=== PATIENT | male | born 1955 | race Caucasian/White ===

== ENCOUNTER 2022-01-01 23:40 | Inpatient (IN) | payer BC, SELFPAY ==
[2022-01-01 23:55] VITALS: BP 176/85; PULSE 82; RESP 16; TEMP 36.7; O2SAT 95
--- NOTE | 2022-01-01 23:57 | ECG_ITS ---
[facility] Test Date: 2022-01-02 Pat Name: Derik Vitale Department: Room: Gender: Male Senior Manager: : 1955 Requested By: Elie Thacker Order Number: [id number] Cathryn MD: Jim Bhandari M.D. Measurements Intervals [place] Rate: 73 P: 51 [place]: 164 QRS: -69 QRSD: 93 T: 23 QT: 354 QTc: 391 Interpretive Statements SINUS RHYTHM LEFT AXIS DEVIATION [QRS AXIS < -30] ANTERIOR MYOCARDIAL INFARCTION , OF INDETERMINATE AGE [30 ms Q WAVE IN V3/V4, OR R < 0.2 mV IN V4] No previous ECG available for comparison Electronically Signed On 01-02-2022 14:52:57 CDT by Jim Bhandari M.D. [email or web address].BullGuard/store/NU/[id number] f
[2022-01-02] VITALS (246 sets, daily range): BP systolic 103–156; BP diastolic 59–90; PULSE 0–106; RESP 7–30; TEMP 36.9–37.1; O2SAT 88–97; BMI 30.6
--- NOTE | 2022-01-02 00:09 | XRR_ITS ---
PROCEDURE INFORMATION: Exam: XR Chest Exam date and time: 01/02/2022 12:21 AM Age: 66 years old Clinical indication: Pain; Chest pressure; Additional info: Cp TECHNIQUE: Imaging protocol: Radiologic exam of the chest. Views: 1 view. COMPARISON: No relevant prior studies available. FINDINGS: Lungs: Unremarkable. No consolidation. Pleural spaces: Unremarkable. No pleural effusion. No pneumothorax. Heart/Mediastinum: Unremarkable. No cardiomegaly. Bones/joints: Unremarkable. XR/XR chest 1V portable [id number] IMPRESSION: No acute findings.
--- NOTE | 2022-01-02 00:09 | ECG_ITS ---
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 Measurements Intervals [place] Rate: 82 P: 46 [place]: 164 QRS: -69 QRSD: 92 T: 13 QT: 350 QTc: 411 Interpretive Statements SINUS RHYTHM LEFT ANTERIOR FASCICULAR BLOCK [QRS AXIS <= -45, QR IN I, RS IN II] POSSIBLE INFERIOR MYOCARDIAL INFARCTION , PROBABLY OLD [30 ms Q WAVE IN II/aVF] ANTEROSEPTAL MYOCARDIAL INFARCTION , OF INDETERMINATE AGE [40+ ms Q WAVE IN V1-V4] No previous ECG available for comparison Electronically Signed On 01-02-2022 14:53:13 CDT by Jim Bhandari M.D. [id number]
[2022-01-02] MEDS: aspirin 81 mg Chew Tablet 324 MG PO (00:14)
[2022-01-02 00:21] LABS: Basophils # 0.1 10^3/uL (0.0-0.1); Basophils % 0.6 %; Eosinophils # 0.2 10^3/uL (0.0-0.8); Eosinophils % 2.5 %; Hematocrit 45.5 % (42.0-52.0); Hemoglobin 15.8 g/dL (11.7-16.6); Lymphocytes # 3.4 10^3/uL (0.8-4.8); Lymphocytes % 38.4 %; Mean Corpuscular HGB Conc 34.7 g/dL (30.0-36.0); Mean Corpuscular Hemoglobin 32.3 pg (28.0-34.0); Mean Platelet Volume 10.3 fL (7.4-10.4); Monocytes # 0.8 10^3/uL (0.2-0.9); Neutrophils # 4.35 10^3/uL (1.8-7.7); Neutrophils % 49.3 %; Nucleated Red Blood Cells % 0 %; Platelet Count 200 10^3/cmm (130-400); Red Blood Count 4.89 10^6/uL (4.1-5.3); Red Cell Distribution Width 11.5 % (12.1-15.1); White Blood Count 8.8 10^3/uL (4.0-10.0)
[2022-01-02 00:28] LABS: INR 0.87 (0.8-1.2)
[2022-01-02 00:29] LABS: Partial Thromboplastin Time 26.1 SECONDS (23.9-36.7)
[2022-01-02] MEDS: heparin 5,000 unit/mL INJ 1 mL 4000 UNIT IVP (00:29)
[2022-01-02] MEDS: morphine 4 mg/mL SDV 1 mL IVP ×2 (00:32→01:47)
[2022-01-02] MEDS: nitroglycerin 0.4 mg sublingual Tablet SUBLINGUAL (00:32)
[2022-01-02] MEDS: ondansetron 2 mg/ML SDV 2 mL 4 MG IVP (00:33)
[2022-01-02 00:36] LABS: Troponin(5th) Baseline 23 ng/L (0-15)
--- NOTE | 2022-01-02 00:44 | W.ED.CHESTPA ---
HPI - Chest Pain General: Chief Complaint: Chest Pain Stated Complaint: Chest Pains Time Seen by Provider: 01/02/22 00:03 Source: patient History of Present Illness: 66-year-old gentleman with a history of hypertension and diabetes. He presents with chest discomfort. It is centralized, and radiates a bit to his back. He has no prior history of coronary disease. He has had pain on and off the last couple of days but did not think much of it because it went away on its own. Pain started sometime before 11 tonight, and did not go away. He is nauseated and short of breath with the pain. He has not thrown up. MD complaint: chest pain Pertinent past history: other Onset (ago): day(s) Timing of current episode: episodic Prior episodes: Yes Onset: during rest Pain location: substernal Pain radiation: back Quality: aching and dull Relieving factors: nothing Exacerbating factors: nothing Associated symptoms: Reports diaphoresis, dyspnea and nausea; Deny abdominal pain, fever(s), leg edema, palpitations or vomiting Treatment prior to arrival: aspirin (Unknown if baby or full) Risk Factors: Coronary artery disease risk factors: diabetes, hyperlipidemia and hypertension Review of Systems Const: Reports: diaphoresis; Denies: fever(s) Eyes: Denies: change in vision Card: Reports: chest pain; Denies: palpitations Resp: Reports: dyspnea GI: Reports: nausea; Denies: abdominal pain or vomiting Skin/Breast: Denies: rash Neuro: Denies: headache(s), weakness in extremities, dizziness or confusion PFS ED PFSH: Medical History (Updated 01/02/22 @ 01:49 by Elie Nicole DO) Chest pressure Diabetes Dyslipidemia Essential hypertension History of COVID-19 Statin intolerance Surgical History (Updated 01/02/22 @ 01:08 by Jim Bhandari MD) History of cholecystectomy Physical Exam Const: GENERAL APPEARANCE: cooperative and ill appearing (Mildly); not frail appearing HENMT: COMMON NORMALS: normocephalic, atraumatic and Normal external nose present HEAD & SCALP: normocephalic and atraumatic FACE & SINUS: normal facial exam and face symmetric NOSE: Normal external nose present Eye: COMMON NORMALS: Equal, round and reactive pupils present and EOMs intact bilaterally PUPIL: Yes Equal, round and reactive pupils present Neck/C-Spine: GENERAL: Yes trachea midline Chest: CHEST: Yes Symmetrical chest wall rise Resp: COMMON NORMALS: normal respiratory effort, No retractions, No use of accessory muscles and clear to auscultation bilaterally AUSCULTATION: clear to auscultation bilaterally Cardio: COMMON NORMALS: regular rate and regular rhythm RATE: regular rate RHYTHM: regular rhythm GI: COMMON NORMALS: Normal to inspection, nondistended, normoactive bowel sounds present Extremity: COMMON NORMALS: no pedal edema Neuro: JERALD COMA SCALE: document GCS findings Jerald coma scale eye opening: Spontaneous Jerald coma scale verbal response: Orientated [place] coma scale motor response: Obey commands Jerald coma scale total score: 15 SENSORY EXAM: Yes extremities (intact) Psych: COMMON NORMALS: speech normal SPEECH: Yes normal speech Skin: COMMON NORMALS: no rashes or lesions noted GENERAL SKIN EXAM: no rashes or lesions noted Course Vital Signs: Vital signs: Vital Signs Temperature 98.0 F 01/01/22 23:55 Pulse Rate 87 01/02/22 01:20 Respiratory Rate 18 01/02/22 01:20 Blood Pressure 145/83 01/02/22 01:20 Pulse Oximetry 95 01/02/22 01:20 Oxygen Delivery Me thod 01/01/22 23:55 MDM - Chest Pain Medical Decision Making Initial EKG shows a sinus rhythm with normal axis. There is ST elevation that is minimal in V1 and V2. There is some minimal depression in lead II. EKG is repeated a few minutes later, and shows similar findings. This was shown to cardiology immediately. They agree that EKG is abnormal, but does not meet STEMI criteria. Nevertheless, he has come in to evaluate the patient. Patient is received heparin, Plavix 600 mg, nitroglycerin with drip and a full dose aspirin. He is also received morphine and Zofran. Repeating an EKG directly. Chest x-ray is nonacute CBC is normal. First troponin is 24. Blood sugar is 281. BMP is not remarkable otherwise. Patient is on a nitroglycerin drip. He is currently pain-free. Cardiology is evaluating the patient. He will go to the ICU. He is scheduled to go to the [facility] at 7 AM Lab Data : 01/02/22 00:11 01/02/22 00:11 Radiology Impressions Chest X-Ray 01/02/22 00:09 IMPRESSION: No acute findings. Laboratory Results WBC 8.8 10^3/uL (4.0-10.0) 01/02/22 00:11 RBC 4.89 10^6/uL (4.1-5.3) 01/02/22 00:11 Hgb 15.8 g/dL (11.7-16.6) 01/02/22 00:11 Hct 45.5 % (42.0-52.0) 01/02/22 00:11 MCV 93.0 fl (80-94) 01/02/22 00:11 MCH 32.3 pg (28.0-34.0) 01/02/22 00:11 MCHC 34.7 g/dL (30.0-36.0) 01/02/22 00:11 RDW 11.5 % (12.1-15.1) L 01/02/22 00:11 Plt Count 200 10^3/cmm (130-400) 01/02/22 00:11 MPV 10.3 fL (7.4-10.4) 01/02/22 00:11 Neut % (Auto) 49.3 % 01/02/22 00:11 Lymph % (Auto) 38.4 % 01/02/22 00:11 [place] % (Auto) 9.0 % 01/02/22 00:11 Eos % (Auto) 2.5 % 01/02/22 00:11 Baso % (Auto) 0.6 % 01/02/22 00:11 Neut # (Auto) 4.35 10^3/uL (1.8-7.7) 01/02/22 00:11 Lymph # (Auto) 3.4 10^3/uL (0.8-4.8) 01/02/22 00:11 [place] # (Auto) 0.8 10^3/uL (0.2-0.9) 01/02/22 00:11 Eos # (Auto) 0.2 10^3/uL (0.0-0.8) 01/02/22 00:11 Baso # (Auto) 0.1 10^3/uL (0.0-0.1) 01/02/22 00:11 Nucleated RBC % (auto) 0 % 01/02/22 00:11 Nucleated RBCs # 0.0 /100WBC 10/31/22 00:11 PT 12.10 SECONDS (12.1-14.9) 01/02/22 00:11 INR 0.87 (0.8-1.2) 01/02/22 00:11 APTT 26.1 SECONDS (23.9-36.7) 01/02/22 00:11 Sodium 133 mmol/L (136-145) L 01/02/22 00:11 Potassium 4.2 mmol/L (3.5-5.1) 01/02/22 00:11 Chloride 94 mmol/L (98-107) L 01/02/22 00:11 Carbon Dioxide 27 mmol/L (22-29) 01/02/22 00:11 Anion Gap 16.2 (5-19) 01/02/22 00:11 BUN 19 mg/dL (8-23) 01/02/22 00:11 Creatinine 0.8 mg/dL (0.7-1.2) 01/02/22 00:11 GFR Calculation 97.3 mL/min (90-130) 01/02/22 00:11 Glucose 281 mg/dL (65-115) H 01/02/22 00:11 Calculated Osmolality 288 mOsm/kg (285-295) 01/02/22 00:11 Calcium 10.2 mg/dL (8.5-10.5) 01/02/22 00:11 Total Bilirubin 0.9 mg/dL (0.15-1.2) 01/02/22 00:11 AST 25 U/L (0-40) 01/02/22 00:11 ALT 46 U/L (0-41) H 01/02/22 00:11 Alkaline Phosphatase 82 U/L (40-130) 01/02/22 00:11 Troponin T Baseline 23 ng/L (0-15) H 01/02/22 00:11 NT-Pro-B Natriuret Pep 36 pg/mL (0-125) 01/02/22 00:11 Total Protein 7.2 g/dL (6.6-8.7) 01/02/22 00:11 Albumin 4.1 g/dL (3.5-5.2) 01/02/22 00:11 Globulin 3.1 g/dL (1.3-4.6) 01/02/22 00:11 Discharge Plan Discharge Patient Disposition: Admitted As Inpatient Clinical Impression: Chest pressure Condition: Fair Referrals: Flores Lino NP [Primary Care Provider] - Coding Level of Care Code ED Swatch Clerk for Chg Fwd Exam Comprehensive
[2022-01-02] MEDS: nitroglycerin drip 50 MG/250 ML PREMIX IV (00:45)
[2022-01-02] MEDS: clopidogrel 300 mg Tablet 600 MG PO (00:45)
[2022-01-02 00:46] LABS: Alanine Aminotransferase 46 U/L (0-41); Albumin Level 4.1 g/dL (3.5-5.2); Alkaline Phosphatase 82 U/L (40-130); Aspartate Amino Transferase 25 U/L (0-40); Blood Urea Nitrogen 19 mg/dL (8-23); Calcium 10.2 mg/dL (8.5-10.5); Carbon Dioxide 27 mmol/L (22-29); Chloride 94 mmol/L (98-107); Globulin 3.1 g/dL (1.3-4.6); Glomerular Filtration Rate 97.3 mL/min (90-130); Glucose 281 mg/dL (65-115); NT Pro B Type Natriuretic Pept 36 pg/mL (0-125); Osmolality Calculated 288 mOsm/kg (285-295); Sodium 133 mmol/L (136-145); Total Bilirubin 0.9 mg/dL (0.15-1.2); Total Protein 7.2 g/dL (6.6-8.7)
[2022-01-02 00:51] LABS: Anion Gap 16.2 (5-19)
[2022-01-02 00:52] LABS: Potassium 4.2 mmol/L (3.5-5.1)
--- NOTE | 2022-01-02 01:01 | P.HP_ITS ---
Providers/Chief Complaint Admitting Physician: ro Primary Care Provider: Flores Lino NP Chief Complaint: Chest Pains History of Present Illness Derik Vitale is a 66 year old male with no known history of heart disease but hypertension, diabetes and dyslipidemia who has been having some discomfort in his chest for the last 2 days. Is been off and on. It would only last for few seconds or a couple minutes. He describes it as a pressure without radiation. Today the episodes were lasting a little longer. This evening around 11 when he went to bed the discomfort was more severe and so he came into the emergency room. It was associated with mild shortness of breath but no radiation and no diaphoresis. He does have GERD and takes a lot of Tums and so he is having a hard time deciding between the 2. His first EKG reveals minimal ST segment elevation in leads V1 and V2 but nothing obvious to suggest a STEMI EKG pattern was repeated twice and is the same. Here we gave him 4 baby aspirin, morphine sulfate, sublingual nitroglycerin, heparin, Plavix and Zofran. When he came in the discomfort was an 8 out of 10. After the medications the discomfort has resolved. He is now placed on intravenous nitroglycerin. His blood pressure was slightly high when he came in but it has gone down some with the IV nitro. Patient has had COVID twice. He has not been vaccinated. He is intolerant of statins and had childhood asthma. He has also had a cholecystectomy. He sta rted smoking at age 18 but quit in 1994. His first troponin is 23. His creatinine is normal. Review of Systems Narrative: His review of systems is negative. Medications/Allergies Allergies Allergy/AdvReac Type Severity Reaction Status Date / Time clarithromycin [From Biaxin] Allergy Unknown Verified 01/01/22 23:57 PFSH Acute PFSH: Medical History (Updated 01/02/22 @ 01:08 by Jim Bhandari MD) Chest pressure Diabetes Dyslipidemia Essential hypertension History of COVID-19 Statin intolerance Surgical History (Updated 01/02/22 @ 01:08 by Jim Bhandari MD) History of cholecystectomy Vitals/I&O/Wt Last Vital Signs Temp 98.0 F 01/01/22 23:55 Pulse 85 01/02/22 00:52 Resp 16 01/02/22 00:52 BP 143/90 01/02/22 00:52 Pulse Ox 92 01/02/22 00:52 O2 Del Method 01/01/22 23:55 Weight last 48 hrs Weight 220 lb Physical Exam Narrative: GENERAL: In general he is currently free of discomfort HEENT: Exam within normal limits. NECK: Supple without jugular vein distention. The carotid upstroke is normal without bruits. BACK: Exam normal. LUNGS: Clear. HEART: Regular rate and rhythm. ABDOMEN: Benign without organomegaly or tenderness. EXTREMITIES: No edema. NEUROLOGIC: Exam normal. SKIN: Unremarkable. Data : 01/02/22 00:11 01/02/22 00:11 A&P Assessment and plan (1) Chest pressure: (2) Diabetes: (3) Essential hypertension: (4) Dyslipidemia: (5) Statin intolerance: (6) History of COVID-19: (7) History of cholecystectomy: Plan He will be admitted for unstable angina. Angiography will be scheduled for later this morning. Attestations Medical Necessity Statement*: Patient will be admitted for management of unsta ble angina and probable non-ST segment elevation myocardial infarction. Hospital stay will cross 2 midnights. 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
[2022-01-02] MEDS: sodium chloride 0.9% 1,000 ML 50 ML IV (01:47)
--- NOTE | 2022-01-02 02:09 | ECG_ITS ---
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 Measurements Intervals [place] Rate: 83 P: 47 [place]: 158 QRS: -62 QRSD: 90 T: 8 QT: 347 QTc: 409 Interpretive Statements SINUS RHYTHM LEFT ANTERIOR FASCICULAR BLOCK [QRS AXIS <= -45, QR IN I, RS IN II] ANTEROSEPTAL MYOCARDIAL INFARCTION , OF INDETERMINATE AGE [40+ ms Q WAVE IN V1-V4] Compared to ECG 01/02/2022 00:49:17 No significant changes Electronically Signed On 01-02-2022 14:56:56 CDT by Jim Bhandari M.D. [email or web address]/[id number]
--- NOTE | 2022-01-02 02:31 | PC.NURSE ---
Report given to JENNIFER Nowak
--- NOTE | 2022-01-02 03:00 | PC.NURSE ---
Transfer Note Patient transferred to ER from ICU via stretcher. Handoff received from SHELLEY Sanchez. Patient oriented to environment and equipment. Covering service notified. Orders reviewed and will continue to monitor. Patient transferred on room air and is alert/oriented x4. Nitro and NS infusing per orders at time of transfer please see MAR for details. No wounds or skin issues noted at this time. Patient denies chest pain upon arrival to ICU. All belongings placed at bedside.
--- NOTE | 2022-01-02 05:49 | PC.NURSE ---
Shift Note Frequent safety and comfort rounds continue. Orders and/or nursing care completed as indicated. Patient monitored for response to intervention and treatment(s). Education provided includes treatment plan and goals of care. Patient verbalized understanding of teaching. Patient had an uneventful shift, remains on room air and is alert/oriented x4. No wounds or skin issues noted at this time. Nitro and NS infusing per orders please see MAR for detail. Patient denies pain overnight and voided 680 mls of urine via urinal. Will continue to monitor.
--- NOTE | 2022-01-02 06:06 | ECG_ITS ---
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 Measurements Intervals [place] Rate: 71 P: 57 [place]: 158 QRS: -62 QRSD: 101 T: 30 QT: 369 QTc: 403 Interpretive Statements SINUS RHYTHM LEFT AXIS DEVIATION [QRS AXIS < -30] ANTEROSEPTAL MYOCARDIAL INFARCTION , OF INDETERMINATE AGE [40+ ms Q WAVE IN V1-V4] Compared to ECG 01/02/2022 01:38:23 Left-axis deviation now present Left anterior fascicular block no longer present Myocardial infarct finding still present Electronically Signed On 01-02-2022 14:57:11 CDT by Jim Bhandari M.D. [email or web address] [email or web address] [email or web address] woman[facility] hospitalShenzhen [employer] [facility].Jolancer/store/OM/[id number]
[2022-01-02] MEDS: diphenhydrAMINE 50 mg Capsule PO (06:09)
--- NOTE | 2022-01-02 06:51 | XACV_ITS ---
Exam Room: [facility] Ht: 178 cm Wt: 97 kg BSA: 2.21 m2 Gender: Male : 1955 Exam Priority: Routine Procedure(s): Procedure Description: Diagnostic procedure Procedure Description: PCI procedure Procedure Description: Drug Eluting Coronary Stent Procedure Description: PTCA Procedure Description: Coronary Angiography Diagnostic Cath Status: Urgent Diagnostic Findings * Patient with hypertension and diabetes with typical angina. Entered the emergency room about 6 hours ago with very minimal ST segment elevation in lead V1. First troponin 23. Patient's pain went away with heparin, Plavix and intravenous nitroglycerin. Catheterization performed this morning. * Angiography revealed right coronary artery dominance. The right coronary artery is a large dominant vessel and contains some diffuse luminal irregularities up to about 30 or 40% in the proximal portion. Otherwise the artery is normal. The right coronary artery does provide collateral flow to the distal LAD.. * The left main coronary artery contains a 20% ostial stenosis. The LAD contains a complicated lesion in the midportion which is greater than 95% stenosis at its beginning then subsequently is 50 to 60% stenosed more distally. There are 2 diagonal branches which emanate from this lesion. Both of these are small and contain 99% stenoses. The remainder of the LAD is unremarkable. * Circumflex gives off a ramus branch at the beginning and a first obtuse marginal branch immediately thereafter. There is a left atrial recurrent branch. More distally there to obtuse marginal branches which are relatively small. The entire vessel is relatively free of disease. PCI Status: Urgent PCI LVEF Assessed: No PCI Indication: NSTE - ACS Interventional Findings * The LAD was initially angioplastied with a 3 x 20 mm balloon. There is significant thrombus and some downstream embolization. The lesion was then stented with a 3 x 30 mm drug-eluting stent. There was mild thrombus beyond the lesion. It was treated with intracoronary Aggrastat and intravenous Aggrastat. Ventriculography was not performed. Decision for PCI with Surgical Consult: No PCI for Multi-vessel Disease: No Conclusions 1. Complex proximal to mid LAD lesion with thrombus undergoing angioplasty and stent. Good angiographic result. Echo pending. Recommendations * Medical therapy. Interventional RX Recommendation: PCI w/o planned CABG Diagnostic RX Recommendation: PCI w/o planned CABG Anticoagulation: Heparin Pressures Phase:Rest AO : 89 / 70 ( 81 ) @ 8:16:00 AM 97 / 64 ( 81 ) @ 8:27:00 AM 100 / 72 ( 87 ) @ 8:41:00 AM 104 / 77 ( 91 ) @ 8:44:00 AM 116 / 80 ( 99 ) @ 8:47:00 AM Clinical Evaluation EBL: 5mL-10mL Procedural Details Procedure Consent Obtained. Admit Source: In Patient. Current Diagnosis : NSTEMI. Pre-Procedure Time Out. Identified patient by full name and date of as verbalized by the patient/guarantor. Does the consent match the physician's order: Yes. Accurate & Complete Informed Consent: Yes. Inpatient/Outpatient History & Physical on Chart: Yes. If H&P is completed, is and addenduem needed: N/A; If yes, is the addendum complete: N/A. Visualize and Verify Site with Patient/Guarantor: N/A. Relevant Radiology Images available: N/A. Pre-op teaching completed and patient verbalized understanding. The risks, benefits, and alternatives of sedation and/or procedure were discussed by physician. The patient agrees to continue. Procedure started. [facility] Clinical Fraility Score: 3: Managing Well. 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 Chest Pain Symptom Assessment: Typical Angina Symptoms. Correct patient, site and procedure confirmed by cath team. Current diagnosis: NSTEMI. PERRLA. Strong, equal hand metal tank builder bilaterally. Lungs clear x 5 lobes. IV Site on Arrival: 20 gauge in the left anticubital. IV Fluids: 0.9% NaCl at KVO. 0 mL infused prior to dental laboratory worker. Pre Procedural Pulses: bilateral dorsalis pedis was 2+. Pre Procedural Pulses: right radial was 2+. Oxygen started at 2liters/min via nasal canula. right groin was prepped with chloroprep then draped in the usual sterile fashion. right radial was prepped with chloroprep then draped in the usual sterile fashion. Baseline sample Acquired. HR: 71 BPM. Physician notified. Physician arrived. Physician scrubbed in. Immediate Pre-Procedure Time Out. Correct Patient: Yes; Correct Procedure: Yes; Correct Site: Yes; Correct Patient Position: Yes; Correct Supplies: Yes; Dried Flammable Prep: Yes; Blood Products Available: N/A;. Lidocaine 1% infiltrated to the right radial. Arterial access obtained. A 6 korean TIG catheter in over wire. Multiple views taken of right coronary artery. Catheter redirected to the LCA. Catheter removed over the exchange wire. PCI Indication: NSTE. 6 korean XB 3.5 guide catheter was inserted over the wire. Exchange wire removed. Unable to engage catheter. XB.3 catheter removed over the exchange wire. 6 korean XB 3 guide catheter was inserted over the wire. Exchange wire removed. [place] guidewire was advanced through the guide catheter to lesion in the mid LAD. Balloon inserted to lesion in the mid LAD. Inflation number : 1 A AB TREK 3.00X20 RX BALLOON was prepped and advanced across the Mid LAD , then inflated to 8 ROBB for 0:20 seconds. Inflation number: 2 The AB TREK 3.00X20 RX BALLOON was reinflated across the Mid LAD, to 8 ROBB for 0:32 seconds. Balloon out. Stent inserted to lesion in the mid LAD. Inflation Number : 3 A SUDEEP Lizama LAZARO 3.0X34 VAHE -Lot Number# [id number] Exp 03/16/2024 was prepped and advanced across the Mid LAD. The stent was deployed at 14 ROBB for 0:31 seconds. Results checked. Results checked. Results checked. Stent balloon out over wire. Guide catheter and wire out. A TR Band was successful obtaining hemostatsis at the Right Radial artery insertion site. Post Procedure: Pulses reassessed and unchanged. PERRLA. Strong, equal hand metal tank builder bilaterally. No VTE prophylaxis required. Medication's Wasted: Lidocaine 1% = 2 mL. Medication's Wasted: Nitro = 49.8 mg. Medication's Wasted: Heparin = 1000 u. Medication's Wasted: Other = Fentanyl 25 mcg. Total IV fluids: 64 mL. Post-op diagnosis: Obstructive CAD. Complications: none. Estimated blood loss: 5mL-10mL. Responsiveness - Normal response to verbal stimuli; alert and oriented, PERRLA. Airway - Unaffected, no intervention required; spontaneous ventilation. Circulation: W/N/L, pulses unchanged. Nausea/Vomiting: No. Procedure completed. Patient transferred by wheelchair to ICU. Vital chart was stopped. Access Site Site: Right Radial artery Sheath Size: 6 Fr Hemostasis Method: TR Band Hemostasis Success: Successful Procedure Medications Start: 7:09 AM Stop: 7:09 AM Medication: Versed Amount: 1 mg Route: I.V. Start: 7:09 AM Stop: 7:09 AM Medication: Fentanyl Amount: 50 mcg Route: I.V. Start: 7:12 AM Stop: 7:12 AM Medication: Nitrogylcerin Amount: 200 mcg Route: I.A. Start: 7:16 AM Stop: 7:16 AM Medication: Heparin Amount: 5000 units Route: I.V. Start: 7:29 AM Stop: 7:29 AM Medication: Versed Amount: 1 mg Route: I.V. Start: 7:29 AM Stop: 7:29 AM Medication: Fentanyl Amount: 25 mcg Route: I.V. Start: 7:54 AM Stop: 7:54 AM Medication: Aggrastat 12.5 mg/250 mL Amount: 49 ml Route: I.C. Start: 7:55 AM Stop: 7:55 AM Medication: Aggrastat 12.5 mg/250 mL Amount: 17.6 ml/hr Route: I.V. don Sarmiento, the attending physician, have reviewed and verified all procedure medications. Yes, all medications given per verbal order History/Risk Factors Hypertension: Yes Dyslipidemia: Yes Peripheral Arterial Disease (PAD): No Myocardial Infarction (NH): No Obesity: Yes Renal Disease: No Tobacco Use: Former Prior Interventions PCI: No CABG: No Valve Surgery: No Report Signatures Finalized by Dr. Jim Bhandari MD on 01/02/2022 08:36 AM
[2022-01-02 07:22] LABS: Troponin 5 6HR 663.3 ng/L (0-15); Troponin 5 6HR Delta 640.3 ng/L (0-12)
--- NOTE | 2022-01-02 08:24 | USCV_ITS ---
Derik Vitale Age: 66 Gender: M : 1955 Exam Date: 01/02/2022 09:58 Ordering Phys: Jim Bhandari MD ([email or web address]) Technologist: Epi Horn [place] [facility] [place]: NSTEMI BP: 134 / 71 HR: 72 Rhythm: Sinus Technical Quality: Adequate MEASUREMENTS (Male / Female) Normal Values 2D ECHO LV Diastolic Diameter PLAX 4.9 cm 4.2 - 5.9 / 3.9 - 5.3 cm LV Systolic Diameter PLAX 3.6 cm IVS Diastolic Thickness 1.0 cm 0.6 - 1.0 / 0.6 - 0.9 cm IVS Systolic Thickness 1.8 cm LVPW Diastolic Thickness 0.8 cm 0.6 - 1.0 / 0.6 - 0.9 cm LVPW Systolic Thickness 1.4 cm LVOT Diameter 2.0 cm LV Ejection Fraction 2D Teich 51.9 % LV Ejection Fraction MOD 2C 56.3 % LV Ejection Fraction 2C AL 57.8 % LA Diameter 3.4 cm LA Width 3.1 cm LA Height 4.9 cm RA Width 3.3 cm RA Height 3.3 cm Aorta at Sinotubular Diameter 2.2 cm IVC Diameter 1.5 cm M-MODE Aortic Annulus Diameter 2.8 cm LA Ao Ratio MM 1.2 MV E Point Septal Separation 0.3 cm DOPPLER AV Peak Velocity 93.5 cm/s LVOT Peak Velocity 72.0 cm/s AV Area Cont Eq vti 2.8 cm squared AV Area Cont Eq pk 2.4 cm squared MV Peak Velocity 85.0 cm/s MV Area PHT 7.1 cm squared Mitral E to A Ratio 0.9 MV E' Velocity 33.0 cm/s Mitral E to MV E' Ratio 6.2 Mitral E to LV E' Lateral Ratio 5.8 Mitral E to LV E' Septal Ratio 6.6 TR Peak Velocity 260.7 cm/s TR Peak Gradient 27.2 mmHg TR Mean Velocity 203.6 cm/s TR Mean Gradient 17.3 mmHg TR Velocity Time Integral 64.8 cm Right Atrial Pressure 3.0 mmHg Pulmonary Artery Systolic Pressu 30.2 mmHg PV Peak Velocity 117.0 cm/s RV Acceleration Time 0.1 s RV Ejection Time 0.3 s RV AcT/ET 0.3 FINDINGS Left Ventricle Left ventricle is normal in size. There segmental wall motion disturbances. The anterior wall and apex are moderately hypokinetic. The remainder of the ventricle contracts normally. The ejection fraction is 40%. Grade 1 diastolic dysfunction. Right Ventricle Normal right ventricular size and systolic function. Right Atrium The right atrium is normal in size. Left Atrium The left atrium is normal in size. Mitral Valve Structurally normal mitral valve without significant stenosis or prolapse. There is no mitral regurgitation. Aortic Valve Structurally normal aortic valve without significant sclerosis or stenosis. There is no aortic regurgitation. Tricuspid Valve Structurally normal tricuspid valve. Trace tricuspid valve regurgitation. Pulmonic Valve Pulmonic valve not well visualized. Pericardium Normal pericardium without effusion. Aorta Normal ascending aorta dimension. IVC The inferior vena cava appears normal. CONCLUSIONS Left ventricle is normal in size. There segmental wall motion disturbances. The anterior wall and apex are moderately hypokinetic. The remainder of the ventricle contracts normally. The ejection fraction is 40%. Grade 1 diastolic dysfunction. There are no prior echocardiogram studies to compare. Dr. Jim Bhandari MD (Electronically Signed) Final Date: 02 January 2022 14:49 S
[2022-01-02] MEDS: sodium chloride 0.9% 1,000 ML 100 ML IV ×2 (08:39→17:24)
[2022-01-02] MEDS: metoprolol tartrate 50 mg Tablet PO ×2 (08:39→17:24)
[2022-01-02] MEDS: clopidogrel 75 mg Tablet PO (08:39)
[2022-01-02] MEDS: insulin lispro 100 unit/1 mL SUBCUT ×3 (12:30→20:33)
--- NOTE | 2022-01-02 18:01 | PC.NURSE ---
TR band removed at 1330. Patient tolerated well. No s/s of bleeding at site. Clean dressing placed. Clean and intact. Activity restrictions explained to patient who verbalized understanding. Patient placed on cardiac diet. 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
[2022-01-03] VITALS (77 sets, daily range): BP systolic 92–138; BP diastolic 50–70; PULSE 59–80; RESP 7–28; TEMP 36.9; O2SAT 91–96
[2022-01-03] MEDS: sodium chloride 0.9% 1,000 ML 100 ML IV (03:50)
--- NOTE | 2022-01-03 06:18 | PC.NURSE ---
Shift Note Frequent safety and comfort rounds continue. Orders and/or nursing care completed as indicated. Patient monitored for response to intervention and treatment(s). Education provided includes medication. Patient verbalize understanding of teaching. Patient had an uneventful shift remains alert/oriented x4 on room air. No wounds or skin issues noted at this time. Patient denies reports of pain overnight and voided 1280 mls via urinal. NS infusing per order please see MAR for detail. Will continue to monitor.
--- NOTE | 2022-01-03 07:14 | PM.DCS ---
Discharge Providers Date of Admission: 01/02/22 01:14 Date of Discharge: January 03, 2022 Attending Provider at Admission: Jim Bhandari MD Attending Provider at Discharge: Jim Bhandari MD Primary Care Provider: Flores Lino NP Diagnoses at Discharge Discharge Diagnosis (1) Chest pressure: Status: Acute (2) Diabetes: Status: Acute (3) Essential hypertension: Status: Acute (4) Dyslipidemia: Status: Acute (5) Statin intolerance: Status: Acute (6) History of COVID-19: Status: Acute (7) History of cholecystectomy: Status: Acute (8) Acute non-ST segment elevation myocardial infarction (NSTEMI) following previous myocardial infarction: Status: Acute (9) CAD (coronary artery disease): Status: Acute (10) S/P coronary artery stent placement: Status: Acute Reason for Visit Reason for Visit: Chest Pains Brief History: Patient is 66 years old without known history of heart disease but with hypertension, dyslipidemia and diabetes who was admitted to the emergency room just after midnight last on the . He had been having typical angina off and on for 2 days. His EKG revealed subtle ST segment elevation in leads V1 and V2. This was very suspicious for unstable angina and an LAD lesion. In the emergency room I gave him heparin, aspirin, Plavix and intravenous nitroglycerin. His pain went away almost immediately. I put him in the hospital, cool things off with the intent of coronary angiography later that morning. Hospital Course Hospital Course He underwent coronary angiography later that morning. A very tight LAD lesion was noted. This underwent angioplasty and stenting without incident. There was some downstream embolization for which I used Aggrastat. The echocardiogram revealed mild to moderate hypokinesis of the anterior wall and apex. His ejection fraction is about 40 to 45%. No congestive heart failure. No further angina. His initial troponin was 23, 2-hour troponin 147 and 6-hour troponin 663. His other labs were unremarkable. EKG did not exchange mechanic time. The procedure was done from the right radial artery. No complications. No bleeding, hematoma or vascular anomaly. Upon his discharge he will limit his activity by not lifting anything more than 5 pounds for 2 days with his right arm. He will be off work until January 12. He will hold his metformin for 2 days. He is intolerant of statins so has not been sent home on this medication. Physical Exam Narrative: GENERAL: At the time of discharge she is comfortable at rest without any pain HEENT: Exam within normal limits. NECK: Supple without jugular vein distention. The carotid upstroke is normal without bruits. BACK: Exam normal. LUNGS: Clear. HEART: Regular rate and rhythm. ABDOMEN: Benign without organomegaly or tenderness. EXTREMITIES: No edema. Right radial artery area is flat, dry without bleeding or hematoma. NEUROLOGIC: Exam normal. SKIN: Unremarkable. 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 echo complete* [id number]] Routine Ultrasound 01/02/22 08:24 Completed Radiology Impressions Chest X-Ray 01/02/22 00:09 IMPRESSION: No acute findings. Laboratory Results WBC 8.8 10^3/uL (4.0-10.0) 01/02/22 00:11 RBC 4.89 10^6/uL (4.1-5.3) 01/02/22 00:11 Hgb 15.8 g/dL (11.7-16.6) 01/02/22 00:11 Hct 45.5 % (42.0-52.0) 01/02/22 00:11 MCV 93.0 fl (80-94) 01/02/22 00:11 MCH 32.3 pg (28.0-34.0) 01/02/22 00:11 MCHC 34.7 g/dL (30.0-36.0) 01/02/22 00:11 RDW 11.5 % (12.1-15.1) L 01/02/22 00:11 Plt Count 200 10^3/cmm (130-400) 01/02/22 00:11 MPV 10.3 fL (7.4-10.4) 01/02/22 00:11 Neut % (Auto) 49.3 % 01/02/22 00:11 Lymph % (Auto) 38.4 % 01/02/22 00:11 [place] % (Auto) 9.0 % 01/02/22 00:11 Eos % (Auto) 2.5 % 01/02/22 00:11 Baso % (Auto) 0.6 % 10/31/22 00:11 Neut # (Auto) 4.35 10^3/uL (1.8-7.7) 01/02/22 00:11 Lymph # (Auto) 3.4 10^3/uL (0.8-4.8) 01/02/22 00:11 [place] # (Auto) 0.8 10^3/uL (0.2-0.9) 01/02/22 00:11 Eos # (Auto) 0.2 10^3/uL (0.0-0.8) 01/02/22 00:11 Baso # (Auto) 0.1 10^3/uL (0.0-0.1) 01/02/22 00:11 Nucleated RBC % (auto) 0 % 01/02/22 00:11 Nucleated RBCs # 0.0 /100WBC 01/02/22 00:11 PT 12.10 SECONDS (12.1-14.9) 01/02/22 00:11 INR 0.87 (0.8-1.2) 01/02/22 00:11 APTT 26.1 SECONDS (23.9-36.7) 01/02/22 00:11 Sodium 133 mmol/L (136-145) L 01/02/22 00:11 Potassium 4.2 mmol/L (3.5-5.1) 01/02/22 00:11 Chloride 94 mmol/L (98-107) L 01/02/22 00:11 Carbon Dioxide 27 mmol/L (22-29) 01/02/22 00:11 Anion Gap 16.2 (5-19) 01/02/22 00:11 BUN 19 mg/dL (8-23) 01/02/22 00:11 Creatinine 0.8 mg/dL (0.7-1.2) 01/02/22 00:11 GFR Calculation 97.3 mL/min (90-130) 01/02/22 00:11 Glucose 281 mg/dL (65-115) H 01/02/22 00:11 Calculated Osmolality 288 mOsm/kg (285-295) 01/02/22 00:11 Calcium 10.2 mg/dL (8.5-10.5) 01/02/22 00:11 Total Bilirubin 0.9 mg/dL (0.15-1.2) 10/31/22 00:11 AST 25 U/L (0-40) 01/02/22 00:11 ALT 46 U/L (0-41) H 01/02/22 00:11 Alkaline Phosphatase 82 U/L (40-130) 01/02/22 00:11 Troponin T Baseline 23 ng/L (0-15) H 01/02/22 00:11 Troponin T 120 Minute 147.0 ng/L (0-15) H 01/02/22 02:03 Delta Troponin T 124.0 ABS# (0-10) H* 01/02/22 02:03 Troponin T Hi Sens 6Hr 663.3 ng/L (0-15) H 01/02/22 06:23 Troponin T Hi Sens 6Hr Delta 640.3 ng/L (0-12) H* 01/02/22 06:23 NT-Pro-B Natriuret Pep 36 pg/mL (0-125) 01/02/22 00:11 Total Protein 7.2 g/dL (6.6-8.7) 01/02/22 00:11 Albumin 4.1 g/dL (3.5-5.2) 01/02/22 00:11 Globulin 3.1 g/dL (1.3-4.6) 01/02/22 00:11 Procedures Performed Coronary angiography, angioplasty and stent of the LAD Vitals Last Vital Signs Temp 98.5 F 01/02/22 20:40 Pulse 65 01/03/22 06:10 Resp 21 H 01/03/22 06:10 BP 115/68 01/03/22 06:10 Pulse Ox 94 01/03/22 06:10 O2 Del Method 01/02/22 11:05 Discharge Plan Discharge Patient Disposition: Home Condition: Stable Prescriptions: New clopidogrel 75 mg Tablet 75 mg PO DAILY Qty: 30 3RF nitroglycerin 0.4 mg Tablet, Sublingual 0.4 mg sublingual Q5M PRN (Reason: Chest Pain) Qty: 25 1RF metoprolol tartrate 50 mg Tablet 50 mg PO BID Qty: 60 3RF aspirin 81 mg tablet,chewable 81 mg PO DAILY Qty: 30 0RF Continued metformin 500 mg tablet 1,000 mg PO BID zinc acetate 50 mg (zinc) Capsule 50 mg PO DAILY lisinopril 20 mg tablet 20 mg PO DAILY magnesium 30 mg Tablet 30 mg PO DAILY Vitamin C 500 mg Tablet Extended Release 500 mg PO DAILY Novolog Flexpen U-100 Insulin 100 unit/mL (3 mL) insulin pen See Rx Instructions .ROUTE .COMPLEX Rx Instructions: subcutaneously per sliding scale as directed Blood Sugar Balance 75-300 mg-mcg Tablet 1 tab PO DAILY Cinnamon 500 mg Capsule 500 mg PO DAILY [place] 3 Fish Oil 684-1,200 mg Capsule,Delayed Release(Dr/Ec) 1 cap PO DAILY garlic 200 mg Tablet 200 mg PO DAILY Tresiba FlexTouch U-100 100 unit/mL (3 mL) insulin pen 64 unit SUBCUT DAILY Rybelsus 3 mg tablet 3 mg PO DAILY zvmjpxv-afru-oyuig-oreg-capryl 100 mg-150 mg- 50 mg-150 mg Capsule 1 cap PO DAILY Discharge Orders: Discharge Order (Routine); Ordered 01/03/22 Ordered By: Jim Bhandari Referrals: Flores Lino NP [Primary Care Provider] - Luz Maxwell FNP [Nurse Practitioner] - 7-10 days (Check right wrist, chemistry panel.) Discharge Diet: Diabetic Discharge Activity: Increase activity as tolerated and Limit activity as instructed Patient Instructions: Coronary Angioplasty (DC), Opioid Safety Activity Restrictions/Additional Instructions: No lifting over 5 pounds for 2 days with the right upper extremity. May return to work January 12 without restriction. Hold metformin for 2 days. Resume at regular dose thereafter. Discharge Attestations Time Spent in Discharge Care*: greater than 30 min Quality Metrics Clinical Quality Measures [ Acute Myocardial Infaction { Clinical Trial Participant: No; Contraindication to aspirin: None; Aspirin prescribed; Contraindication to statin: Adverse reaction to drug; Contraindication to PCI: None; PCI performed; Contraindication to Fibrinolytics: Alternative treatment initiated}] Coding Level of Care Code Established Pt Acute Chg FW DC note Patient Type Established History Detailed Exam Detailed Medical Decision Making Moderate Complexity Diagnoses Chest pressure R07.89 Diabetes E11.9 Essential hypertension I10 Dyslipidemia E78.5 Statin intolerance Z78.9 History of COVID-19 Z86.16 History of cholecystectomy Z90.49 Acute non-ST segment elevation myocardial infarction (NSTEMI) following previous myocardial infarction I22.2 CAD (coronary artery disease) I25.10 S/P coronary artery stent placement Z95.5
[2022-01-03 07:48] LABS: Glucose Point of Care 190 mg/dL (70-110)
[2022-01-03 07:57] LABS: Glucose Point of Care 225 mg/dL (70-110)
[2022-01-03 07:57] LABS: Glucose Point of Care 165 mg/dL (70-110)
[2022-01-03 07:57] LABS: Glucose Point of Care 173 mg/dL (70-110)
--- NOTE | 2022-01-03 09:35 | PC.CHAP ---
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 [] Patient/Family/Request visit [] Outpatient visit [] Follow-up visit [] Physician referral [] Code/Alert [x] Routine visit [] Staff referral [] Actively dying [] Patient sleeping [] Family support [] [] Out of room [] Palliative care [] [x] Receiving care in room [] Pre-surgical visit [] Trauma [] Long length of stay [x] ICU visit [] Other: Relational/Emotional Strength [] Patient feels connected with others/family/visitors/staff [] Distress [] Loneliness/isolation [] Abandonment Spirituality of Patient [] Person of Annmarie [] Attends Methodist of their Annmarie [] Believes in Prayer [] Reads Bible or Latter Day materials [] There are Spiritual issues to be addressed Harvest Field Ticketer Interventions [x] Prayer [] Active listening [] Non-anxious presence [] Spiritual/emotional support [] Crisis/trauma care [] Spiritual counseling [] Bereavement support [] Provided bereavement packet [] Provided Bible/devotional materials [] Provided toy/stuffed animal, coloring book to patient or family member [] Provided Communion [] Anointing/[place] [] Salvation [x] Completed spiritual assessment [] Other: Impact on Illness or Injury [] Angry [] Fearful [] Anxious [] Often cries [] Exhaustion [] Unable to work [] Unable to attend episcopal [] Unable to walk/stand [] Unable to read [] Unable to drive [] Unable to eat/drink [] Unable to sleep [] Unable to be with family [] Patient intubated [] Other: Summary Time spent with patient
== END 2022-01-03 09:36 | disposition home or self-care (01) | DRG 247 ==
LOC: ER 01-02 02:25 → ICU 01-02 05:47
PROVIDERS: Admitting Provider Internal Medicine Cardiovascular Disease; Emergency Provider Emergency Medicine; PCP Nurse Practitioner; Visit Provider Internal Medicine Cardiovascular Disease
PROC: 027034Z Dilation of Coronary Artery, One Artery with Drug-eluting Intraluminal Device, Percutaneous Approach (ICD-10-PCS; principal; 2022-01-02 07:00)
PROC: 027034Z Dilation of Coronary Artery, One Artery with Drug-eluting Intraluminal Device, Percutaneous Approach (ICD-10-PCS; 2022-01-02 07:00)
DX: I21.4 Non-ST elevation (NSTEMI) myocardial infarction (principal); I25.110 Atherosclerotic heart disease of native coronary artery with unstable angina pectoris; K21.9 Gastro-esophageal reflux disease without esophagitis; Z86.16 Personal history of COVID-19; Z87.891 Personal history of nicotine dependence; E11.9 Type 2 diabetes mellitus without complications; E78.5 Hyperlipidemia, unspecified; I10 Essential (primary) hypertension; Z79.84 Long term (current) use of oral hypoglycemic drugs; Z79.4 Long term (current) use of insulin
CPT/HCPCS: 36415; 36416; 71045; 80053; 82962; 83880; 84484; 85025; 85610; 85730; 93005; 93306; 93454; 96360; 96365; 96366; 96372; 96375; 96376; 99152; 99153; 99285; C1725; C1769; C1874; C1887; C1894; C9600; J1644; J1815; J2250; J2270; J2405; J3010; J3490; J7030; Q0163; Q9967

== ENCOUNTER → 2022-01-09 14:03 | Outpatient (BNVA) | payer BC, SELFPAY | PROVIDERS: PCP Nurse Practitioner; Visit Provider Nurse Practitioner Family | DX: I25.10 Atherosclerotic heart disease of native coronary artery without angina pectoris (principal); Z09 Encounter for follow-up examination after completed treatment for conditions other than malignant neoplasm | CPT/HCPCS: 80048 ==

== ENCOUNTER → 2022-03-17 10:57 | Outpatient (BNVA) | payer OTHER, SELFPAY | PROVIDERS: PCP Nurse Practitioner; Visit Provider Internal Medicine Cardiovascular Disease | DX: I25.10 Atherosclerotic heart disease of native coronary artery without angina pectoris (principal); I25.5 Ischemic cardiomyopathy; I10 Essential (primary) hypertension; E78.5 Hyperlipidemia, unspecified; Z78.9 Other specified health status; Z87.891 Personal history of nicotine dependence | CPT/HCPCS: 99214; Q3014 ==

== ENCOUNTER 2022-03-29 10:50 | Inpatient (IN) | payer OTHER, SELFPAY ==
[2022-03-29] VITALS (13 sets, daily range): BP systolic 133–160; BP diastolic 53–89; PULSE 68–87; RESP 15–22; TEMP 36.4–36.9; O2SAT 92–97; BMI 30.1; BMI 31.3
--- NOTE | 2022-03-29 10:51 | CT_ITS ---
WS: [id number] CT CERVICAL TRAUMA TECHNIQUE: Noncontrast CT of the cervical spine with coronal and sagittal reformatted images. CLINICAL INFORMATION: Trauma COMPARISON: None. DLP: 1117.[address] scans at [facility] use at least one of these dose optimization techniques: automated e xposure control; mA and/or kV adjustment per patient size (includes targeted exams where dose is matc hed to clinical indication); or iterative reconstruction. FINDINGS: Straightening of the normal cervical lordosis. Mild cervical curve. Disc space narrowing worse at C4- C5 and C5-C6. Mild spondylitic changes. Normal craniocervical junction. Normal C1-C2 articulation. De ns is normal in appearance. Normal occipital condyles. No high-grade spinal canal narrowing. Normal C 1 ring. No evidence of acute fracture or dislocation. Normal prevertebral soft tissues. Mastoids air cells are well aerated. CT/CT cervical spin wo con* [id number] IMPRESSION: No evidence of acute fracture or dislocation.
--- NOTE | 2022-03-29 10:51 | XR_ITS ---
WS: [id number] Exam: XR forearm LT 2V [id number] Date/Time of Exam: 03/29/2022 10:51 AM Reason For Exam: Trauma There is a severely comminuted displaced fracture of the distal radius. There is volar displacement o f the distal radial shaft in relationship to the epiphysis. Significant shortening. The ulna is intac t. Soft tissue swelling. XR/XR forearm LT 2V [id number] IMPRESSION: 1. Severely comminuted displaced distal radial fracture.
--- NOTE | 2022-03-29 10:51 | XR_ITS ---
WS: [id number] Exam: XR hip LT 2-3V wo/w pel* [id number] Date/Time of Exam: 03/29/2022 10:51 AM Reason For Exam: Trauma There is a comminuted intertrochanteric fracture of the left hip without significant displacement. Th e fracture involves both the greater and lesser trochanters. The joint compartment is preserved with minimal degenerative change. Lateral soft tissue swelling. XR/XR hip LT 2-3V wo/w pel* [id number] IMPRESSION: 1. Comminuted nondisplaced intertrochanteric fracture of the left hip.
--- NOTE | 2022-03-29 10:51 | CT_ITS ---
WS: [id number] CT CHEST, ABDOMEN, AND PELVIS TECHNIQUE: Contrast-enhanced CT of the chest, abdomen, and pelvis with coronal and sagittal reformatt ed images. CLINICAL INFORMATION: Trauma COMPARISON: None. DLP: 1663.[address] scans at [facility] use at least one of these dose optimization techniques: automated e xposure control; mA and/or kV adjustment per patient size (includes targeted exams where dose is matc hed to clinical indication); or iterative reconstruction. CT CHEST: Both lungs are well aerated. No acute pulmonary infiltrates. No focal pneumonia or pleural fluid. No pneumothorax. Normal caliber thoracic aorta. No evidence of acute aortic injury. Normal caliber desce nding thoracic aorta. No evidence of mediastinal hematoma. Proximal main pulmonary arteries are chayo l. Normal visualized thoracic spine. No visualized left-sided rib fractures. CT ABDOMEN AND PELVIS: Diffuse fatty infiltration liver. Normal portal vein and splenic vein. Normal spleen. Cholecystectomy clips. Small esophageal hiatal hernia. Adrenal glands are normal. Normal renal parenchymal enhanceme nt. No hydronephrosis. Normal pancreatic parenchymal enhancement. Normal caliber abdominal aorta. Mil d aortic calcification. No evidence of solid organ injury. No free fluid in the abdomen or pelvis. Normal lumbar spine. Nondi splaced intertrochanteric LEFT hip fracture. CT/CT chest abd pel w con* IMPRESSION: 1. No acute traumatic findings in the chest. 2. Nondisplaced intertrochanteric LEFT hip fracture. 3. No free fluid in the abdomen or pelvis. 4. No evidence of solid organ injury in the abdomen or pelvis. 5. Prior cholecystectomy.
--- NOTE | 2022-03-29 10:52 | CT_ITS ---
WS: [id number] CT HEAD TECHNIQUE: Noncontrast CT of the head obtained from the skullbase to the vertex. CLINICAL INFORMATION: Trauma COMPARISON: None. DLP: 1117.[address] scans at [facility] use at least one of these dose optimization techniques: automated e xposure control; mA and/or kV adjustment per patient size (includes targeted exams where dose is matc hed to clinical indication); or iterative reconstruction. FINDINGS: No evidence of intracranial hemorrhage or mass effect. Ventricular system and basal cisterns are omalley nt. Mild small vessel changes with mild parenchymal volume loss. No extra-axial fluid collections. No evidence of mass or mass effect. Mastoid air cells are well aerated. Mild mucosal thickening ethmoid air cells. Normal posterior nasop harynx. CT/CT head wo con* [id number] IMPRESSION: 1. No evidence of intracranial hemorrhage or mass effect. 2. Mild small vessel changes. Mild parenchymal volume loss. 3. Mild scalp soft tissue edema near the vertex. 4. No acute intracranial findings.
[2022-03-29 11:06] LABS: Basophils % 0.5 %; Eosinophils # 0.2 10^3/uL (0.0-0.8); Eosinophils % 2.4 %; Hemoglobin 14.3 g/dL (11.7-16.6); Lymphocytes # 2.7 10^3/uL (0.8-4.8); Lymphocytes % 32.6 %; Mean Corpuscular HGB Conc 33.3 g/dL (30.0-36.0); Mean Corpuscular Hemoglobin 31.2 pg (28.0-34.0); Mean Corpuscular Volume 93.7 fl (80-94); Monocytes # 0.8 10^3/uL (0.2-0.9); Monocytes % 9.7 %; Neutrophils # 4.51 10^3/uL (1.8-7.7); Neutrophils % 54.6 %; Nucleated Red Blood Cells % 0 %; Platelet Count 194 10^3/cmm (130-400); Red Blood Count 4.59 10^6/uL (4.1-5.3); Red Cell Distribution Width 11.6 % (12.1-15.1); White Blood Count 8.3 10^3/uL (4.0-10.0)
[2022-03-29] MEDS: iohexol 350 mg/mL 500 mL Btl (per mL) IV (11:24)
[2022-03-29] MEDS: ondansetron 2 mg/ML SDV 2 mL 4 MG IVP (11:27)
[2022-03-29] MEDS: morphine 4 mg/mL SDV 1 mL IVP ×5 (11:27→21:10)
[2022-03-29 11:29] LABS: Alanine Aminotransferase 34 U/L (0-41); Alkaline Phosphatase 64 U/L (40-130); Anion Gap 15.5 (5-19); Aspartate Amino Transferase 27 U/L (0-40); Blood Urea Nitrogen 23 mg/dL (8-23); Calcium 8.9 mg/dL (8.5-10.5); Carbon Dioxide 26 mmol/L (22-29); Chloride 98 mmol/L (98-107); Creatinine Clr Calc Pharmacy 123.5024; Globulin 2.7 g/dL (1.3-4.6); Glomerular Filtration Rate 113.5 mL/min (90-130); Glucose 165 mg/dL (65-115); Osmolality Calculated 287 mOsm/kg (285-295); Potassium 4.5 mmol/L (3.5-5.1); Sodium 135 mmol/L (136-145); Total Bilirubin 0.7 mg/dL (0.15-1.2); Total Protein 6.7 g/dL (6.6-8.7)
--- NOTE | 2022-03-29 12:43 | W.ED.FALL ---
HPI - Fall General: Chief Complaint: Fall Stated Complaint: Fall Time Seen by Provider: 03/29/22 10:51 Source: patient Mode of arrival: ambulatory History of Present Illness: 66-year-old male presents to the emergency room after a fall. He was cleaning off a truck and fell approximately 12 feet landed on his left side on the concrete he is complaining of left wrist pain and left hip pain. He did hit his head when he fell but there was no loss of consciousness he is not on any anticoagulants but he is on Plavix. He is diabetic. He has no abdominal pain or chest pain no difficulty breathing. complaint: fall Onset (ago): minute(s) Fall from: from height (distance) (12 feet) Place fall occurred: work Loss of consciousness: None Prolonged down time: no Symptoms prior to fall: none Context: tripped/slipped Location of injury - extremities: Left: hand (Wrist) and thigh (Hip) Severity: severe Quality: sharp Associated symptoms-after fall: Reports difficulty walking; Denies abdominal pain, chest pain, confusion, headache(s), hematuria, lightheadedness, neck pain, numbness, short of breath, vertigo or weakness Review of Systems Const: Denies: fever(s), chills, body aches, change in appetite, fatigue or malaise ENMT: Denies: throat pain, ear or mastoid pain, nasal discharge or nasal congestion Card: Denies: chest pain or lightheadedness Resp: Denies: dyspnea, productive cough or non-productive cough GI: Denies: abdominal pain : Denies: hematuria Musc: Denies: neck pain Skin/Breast: Denies: rash or pruritus Neuro: Reports: difficulty walking; Denies: headache(s), vertigo or confusion [facility] ED PFSH: Medical History (Updated 03/29/22 @ 14:26 by Roel William DO) Acute non-ST segment elevation myocardial infarction (NSTEMI) following previous myocardial infarction CAD (coronary artery disease) Chest pressure Diabetes Dyslipidemia Essential hypertension History of COVID-19 Ischemic cardiomyopathy Statin intolerance Surgical History History of cholecystectomy S/P coronary artery stent placement mid LAD Social History Smoking and tobacco status: former smoker (1994) Course Vital Signs: Vital signs: Vital Signs Temperature 97.7 F 03/29/22 10:48 Pulse Rate 82 03/29/22 13:50 Respiratory Rate 19 H 03/29/22 13:50 Blood Pressure 133/65 03/29/22 13:50 Pulse Oximetry 97 03/29/22 13:50 Oxygen Delivery Me thod 03/29/22 13:50 MDM - Fall Medical Decision Making CT chest abdomen pelvis head and neck are all negative. Patient does have a left intertrochanteric hip fracture and a comminuted distal radius fracture. Distal radius fracture placed in a splint and a sling discussed Dr. Dickerson he will see the patient in consultation. Patient will be admitted to the hospital as discussed Dr. Thompson. Orders are written patient does have a history of coronary artery disease and diabetes mellitus. He had a stent placed for a STEMI in December of last year. Medical Records I reviewed the patient's medical records. Lab Data I reviewed the patient's lab results. 03/29/22 10:52 03/29/22 10:52 Radiology Impressions Cervical Spine CT 03/29/22 10:51 IMPRESSION: No evidence of acute fracture or dislocation. Chest/Abdomen/Pelvis CT 03/29/22 10:51 IMPRESSION: 1. No acute traumatic findings in the chest. 2. Nondisplaced intertrochanteric LEFT hip fracture. 3. No free fluid in the abdomen or pelvis. 4. No evidence of solid organ injury in the abdomen or pelvis. 5. Prior cholecystectomy. Forearm X-Ray 03/29/22 10:51 IMPRESSION: 1. Severely comminuted displaced distal radial fracture. Hip/Pelvis X-Ray 03/29/22 10:51 IMPRESSION: 1. Comminuted nondisplaced intertrochanteric fracture of the left hip. Head CT 03/29/22 10:52 IMPRESSION: 1. No evidence of intracranial hemorrhage or mass effect. 2. Mild small vessel changes. Mild parenchymal volume loss. 3. Mild scalp soft tissue edema near the vertex. 4. No acute intracranial findings. Laboratory Results WBC 8.3 10^3/uL (4.0-10.0) 03/29/22 10:52 RBC 4.59 10^6/uL (4.1-5.3) 03/29/22 10:52 Hgb 14.3 g/dL (11.7-16.6) 03/29/22 10:52 Hct 43.0 % (42.0-52.0) 03/29/22 10:52 MCV 93.7 fl (80-94) 03/29/22 10:52 MCH 31.2 pg (28.0-34.0) 03/29/22 10:52 MCHC 33.3 g/dL (30.0-36.0) 03/29/22 10:52 RDW 11.6 % (12.1-15.1) L 03/29/22 10:52 Plt Count 194 10^3/cmm (130-400) 03/29/22 10:52 MPV 10.0 fL (7.4-10.4) 03/29/22 10:52 Neut % (Auto) 54.6 % 03/29/22 10:52 Lymph % (Auto) 32.6 % 03/29/22 10:52 [place] % (Auto) 9.7 % 03/29/22 10:52 Eos % (Auto) 2.4 % 03/29/22 10:52 Baso % (Auto) 0.5 % 03/29/22 10:52 Neut # (Auto) 4.51 10^3/uL (1.8-7.7) 03/29/22 10:52 Lymph # (Auto) 2.7 10^3/uL (0.8-4.8) 03/29/22 10:52 [place] # (Auto) 0.8 10^3/uL (0.2-0.9) 03/29/22 10:52 Eos # (Auto) 0.2 10^3/uL (0.0-0.8) 03/29/22 10:52 Baso # (Auto) 0.0 10^3/uL (0.0-0.1) 03/29/22 10:52 Nucleated RBC % (auto) 0 % 03/29/22 10:52 Nucleated RBCs # 0.0 /100WBC 03/29/22 10:52 Sodium 135 mmol/L (136-145) L 03/29/22 10:52 Potassium 4.5 mmol/L (3.5-5.1) 03/29/22 10:52 Chloride 98 mmol/L (98-107) 03/29/22 10:52 Carbon Dioxide 26 mmol/L (22-29) 03/29/22 10:52 Anion Gap 15.5 (5-19) 03/29/22 10:52 BUN 23 mg/dL (8-23) 03/29/22 10:52 Creatinine 0.7 mg/dL (0.7-1.2) 03/29/22 10:52 GFR Calculation 113.5 mL/min (90-130) 03/29/22 10:52 Glucose 165 mg/dL (65-115) H 03/29/22 10:52 Calculated Osmolality 287 mOsm/kg (285-295) 03/29/22 10:52 Calcium 8.9 mg/dL (8.5-10.5) 03/29/22 10:52 Total Bilirubin 0.7 mg/dL (0.15-1.2) 03/29/22 10:52 AST 27 U/L (0-40) 03/29/22 10:52 ALT 34 U/L (0-41) 03/29/22 10:52 Alkaline Phosphatase 64 U/L (40-130) 03/29/22 10:52 Total Protein 6.7 g/dL (6.6-8.7) 03/29/22 10:52 Albumin 4.0 g/dL (3.5-5.2) 03/29/22 10:52 Globulin 2.7 g/dL (1.3-4.6) 03/29/22 10:52 Urine Color Yellow (Yellow) 03/29/22 13:30 Urine Appearance Clear (CLEAR) 03/29/22 13:30 Urine pH 5 (5-7) 03/29/22 13:30 Ur Specific [place] 1.005 (1.005-1.030) 03/29/22 13:30 Urine Protein Trace (Negative) 03/29/22 13:30 Urine Glucose (UA) 1+ (Normal) H 03/29/22 13:30 Urine Ketones 1+ (Negative) H 03/29/22 13:30 Urine Blood Trace (Negative) H 03/29/22 13:30 Urine Nitrate Negative (Negative) 03/29/22 13:30 Urine Bilirubin Neg (Negative) 03/29/22 13:30 Urine Urobilinogen Neg mg/dL (Negative) 03/29/22 13:30 Ur Leukocyte Esterase Trace (Negative) H 03/29/22 13:30 Urine RBC Rare /hpf (0-2) 03/29/22 13:30 Urine WBC Rare /hpf (0-5) 03/29/22 13:30 Ur Squamous Epith Cells None /hpf (0-5) 03/29/22 13:30 Amorphous Sediment Not Reportable 03/29/22 13:30 Urine Bacteria None /hpf (NONE) 03/29/22 13:30 Urine Sperm 2+ /hpf 03/29/22 13:30 Discharge Plan Discharge Patient Disposition: Admitted As Inpatient Clinical Impression: Closed intertrochanteric fracture of left hip, Ischemic cardiomyopathy, Diabetes, Essential hypertension, Closed fracture of distal end of left radius, Carotid artery disease Condition: Stable Prescriptions: No Action aspirin 81 mg tablet,chewable 81 mg PO DAILY Qty: 90 3RF clopidogrel 75 mg tablet 75 mg PO DAILY Qty: 90 3RF metoprolol tartrate 50 mg tablet 50 mg PO BID Qty: 180 3RF ezetimibe [Zetia] 10 mg tablet 10 mg PO DAILY Qty: 90 0RF insulin glargine [Lantus Solostar U-100 Insulin] 100 unit/mL (3 mL) insulin pen 56 unit SUBCUT BID Qty: 15 0RF metformin 500 mg tablet 1,000 mg PO BID zinc acetate 50 mg (zinc) Capsule 50 mg PO DAILY lisinopril 20 mg tablet 20 mg PO DAILY magnesium 30 mg Tablet 30 mg PO DAILY ascorbic acid (vitamin C) [Vitamin C] 500 mg Tablet Extended Release 500 mg PO DAILY biotin-alpha lipoic [id number] 75-300 mg-mcg Tablet 1 tab PO DAILY cinnamon bark [Cinnamon] 500 mg Capsule 500 mg PO DAILY omega-3 fatty acids-fish oil 684-1,200 mg Capsule,Delayed Release(Dr/Ec) 1 cap PO DAILY garlic 200 mg Tablet 200 mg PO DAILY yfhdizi-powx-npqeh-oreg-capryl 100 mg-150 mg- 50 mg-150 mg Capsule 1 cap PO DAILY nitroglycerin 0.4 mg Tablet, Sublingual 0.4 mg sublingual Q5M PRN (Reason: Chest Pain) Qty: 25 1RF Novolog FlexPen U-100 Insulin 100 unit/mL (3 mL) insulin pen See Rx Instructions .ROUTE .COMPLEX Rx Instructions: per sliding scale Rybelsus 3 mg tablet 7 mg PO DAILY benzonatate 100 mg capsule 200 mg PO BEDTIME PRN (Reason: Cough) Referrals: Flores Lino MANUFACTURING ACCOUNTANT [Primary Care Provider] - Coding Level of Care Code ED Equipment Installation Professional for Ashish Fox
[2022-03-29 13:44] LABS: Add Urine Microscopic? YES; Bilirubin Urine Neg (Negative); Blood Urine Trace (Negative); Glucose Urine UA 1+ (Normal); Ketones Urine 1+ (Negative); Leukocyte Esterase Urine Trace (Negative); Nitrate Urine Negative (Negative); Protein Urine Trace (Negative); Specific Gravity, Urine 1.005 (1.005-1.030); Urine Appearance Clear (CLEAR); Urine Color Yellow (Yellow); Urobilinogen Urine Neg (Negative); pH Urine 5 (5-7)
[2022-03-29 13:54] LABS: Add Urine Culture? No; RBC Urine RARE /hpf (0-2); Sperm Urine 2+ /hpf; WBC Urine RARE /hpf (0-5)
--- NOTE | 2022-03-29 14:17 | P.HP_ITS ---
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 Orthopedics was consulted from the ER and plans to take him for ORIF. Hospitalist service was consulted for admission. Examination patient comfortably in bed without any nausea vomiting, headache. Complaining of pain in the hip. Denies any chest pain or difficulty breathing at rest or on exertion. Maintaining well on room air and is hemodynamically stable currently. Review of Systems General: Reports: 10 or more systems reviewed and unremarkable except in HPI and below Const: Denies: fever(s), chills, body aches, change in appetite, change in weight, malaise, night sweats, diaphoresis, change in sleep pattern, daytime sleepiness or snoring Eyes: Denies: change in vision, blurry vision, photophobia, eye discomfort or eye discharge ENMT: Denies: throat pain, enlarged tonsils, hoarseness, mouth pain, oral sores, dry mouth, tinnitus, nasal congestion or post nasal drip Card: Denies: chest pain, palpitations, irregular heart rhythm, edema, swelling of feet/ankles, lightheadedness, syncope, pre-syncope, dyspnea on exertion, orthopnea, leg pain with exertion or acrocyanosis Resp: Denies: dyspnea, productive cough, non-productive cough, wheezing, stridor, pain on inspiration, change in phlegm color, hemoptysis or chest co ngestion GI: Denies: abdominal pain, nausea, vomiting, hematemesis, coffee ground emesis, dysphagia, heartburn, diarrhea, constipation, bloating, GI cramping, change in bowel habits, pain on defecation, hematochezia or melena : Denies: flank pain, difficulty urinating, dysuria, urinary frequency, urinary urgency, urinary hesitancy, urinary dribbling, difficulty starting urination, change in urine stream, nocturia or hematuria Musc: Denies: neck pain, back pain, extremity pain, joint pain, joint swelling , joint redness, joint stiffness or limited range of motion Neuro: Denies: headache(s), numbness in extremities, weakness in extremities, sensory changes, lack of coordination, difficulty walking, frequent falls, dizziness, vertigo, confusion, Slurred speech present, difficulty communicating thoughts or seizure-like activity Psych: Denies: anxiety, depression, mood swings, panic attacks, hopelessness or irritability Endo: Denies: polyuria, polydipsia, tired all the time, cold intolerance, excessive sweating, flushing or heat intolerance Javier/Lymph: Denies: easy bruising or easy bleeding All/Imm: Denies: tongue swelling, facial swelling or acute wheezing Medications/Allergies Home Medications Medication Instructions Recorded Confirmed Last Taken Type ascorbic acid (vitamin C) 500 mg 500 mg PO DAILY 01/02/22 03/29/22 03/29/22 History tablet,extended release (Vitamin C ER) biotin-alpha lipoic 1 tab PO DAILY 01/02/22 03/29/22 03/29/22 History [id number] 75 mg-300 mcg tablet cinnamon bark 500 mg capsule 500 mg PO DAILY 01/02/22 03/29/22 03/29/22 History (Cinnamon) garlic 200 mg tablet 200 mg PO DAILY 01/02/22 03/29/22 03/29/22 History lisinopril 20 mg tablet 20 mg PO DAILY 01/02/22 03/29/22 03/29/22 History magnesium 30 mg tablet 30 mg PO DAILY 01/02/22 03/29/22 03/29/22 History metformin 500 mg tablet 1,000 mg PO BID 01/02/22 03/29/22 03/29/22 History omega-3 fatty acids-fish oil 684 1 cap PO DAILY 01/02/22 03/29/22 03/29/22 History mg-1,200 mg capsule,delayed release tumeric 100 mg-montse 150 mg-olive 1 cap PO DAILY 01/02/22 03/29/22 03/29/22 History 50 mg-oreg 150 mg-caprylate capsule zinc acetate 50 mg (zinc) capsule 50 mg PO DAILY 01/02/22 03/29/22 03/29/22 History nitroglycerin 0.4 mg sublingual 0.4 mg sublingual Q5M PRN Chest 01/03/22 03/29/22 Unknown Rx tablet Pain #25 tabs aspirin 81 mg chewable tablet 81 mg PO DAILY #90 tabs 01/25/22 03/29/22 03/29/22 Rx clopidogrel 75 mg tablet 75 mg PO DAILY #90 tabs 01/25/22 03/29/22 03/29/22 Rx metoprolol tartrate 50 mg tablet 50 mg PO BID #180 tabs 01/25/22 03/29/22 03/29/22 Rx insulin aspart U-100 100 unit/mL See Rx Instructions .Route .COMPLEX 03/17/22 03/29/22 Unknown History (3 mL) subcutaneous pen (Novolog FlexPen U-100 Insulin aspart) semaglutide 3 mg tablet (Rybelsus) 7 mg PO DAILY 03/17/22 03/29/22 03/29/22 History ezetimibe 10 mg tablet (Zetia) 10 mg PO DAILY #90 tabs 03/24/22 03/29/22 Rx insulin glargine 100 unit/mL (3 56 unit (0.56 mL) SUBCUT BID #15 mL 03/24/22 03/29/22 03/29/22 Rx mL) subcutaneous pen (Lantus Solostar U-100 Insulin) benzonatate 100 mg capsule 200 mg PO BEDTIME PRN Cough 03/29/22 03/29/22 Unknown History Allergies Allergy/AdvReac Type Severity Reaction Status Date / Time clarithromycin [From Biaxin] Allergy Unknown Verified 01/09/22 09:02 PFSH Acute PFSH: Medical History (Updated 03/29/22 @ 14:29 by Varghese Thompson MD) Acute non-ST segment elevation myocardial infarction (NSTEMI) following previous myocardial infarction CAD (coronary artery disease) Chest pressure Diabetes Dyslipidemia Essential hypertension History of COVID-19 Ischemic cardiomyopathy Statin intolerance Surgical History History of cholecystectomy S/P coronary artery stent placement mid LAD Social History Smoking and tobacco status: former smoker (1994) Vitals/I&O/Wt Last Vital Signs Temp 97.7 F 03/29/22 10:48 Pulse 82 03/29/22 13:50 Resp 19 H 03/29/22 13:50 BP 133/65 03/29/22 13:50 Pulse Ox 97 03/29/22 13:50 O2 Del Method 03/29/22 13:50 Weight last 48 hrs Weight 95.254 kg Physical Exam Narrative: General: No acute distress, AO x3 HEENT: PERRLA, pupils bilaterally equal and reactive Chest: Normal vesicular breath sounds, no added sounds, equal good air entry bilaterally CVS: S1-S2 regular, no murmurs, no tachycardia, no gallops, no rubs Abdomen: Soft, nontender, no organomegaly, bowel sounds present Neuro: No focal deficits, no facial deformity, AO x3, power 5/5 in all limbs Extremity: Right wrist swollen deformed Left leg pain antalgic position. Urinary Catheter Management: [place]: Cath Placed During This Visit: yes Urinary Catheter Date of Insertion: 03/29/22 Urinary Catheter Time of Insertion: 13:54 Data 03/29/22 10:52 03/29/22 10:52 A&P Assessment and plan (1) Fall: Mechanical fall. Denies any dizziness, chest pain, weakness in any of the limbs prior to the fall. Multiple trauma scans and imaging appreciated. (2) Closed intertrochanteric fracture of left hip: Orthopedic consulted from the ER. Plan for ORIF. Physical therapy, perioperative antibiotics as per surgical team. Anticoagulation as per surgical team. Given recent history of STEMI, post PCI within the last 6 months on aspirin and Plavix patient is at high risk of bleeding while being on Plavix and is at a high risk of stent thrombosis if DAPT stopped. Patient is at high risk for cardiac event or bleeding for otherwise necessary surgery. Risks discussed in detail with patient and patient's family. They are both agreeable and understand. (3) Closed fracture of distal end of left radius: As per orthopedic team. Plan for conservative treatment. Splinting as per ER. (4) S/P coronary artery stent placement: Within last 6 months post non-ST elevation RI.. Continue with aspirin. Hold off on Plavix. Continue with Zetia, beta-cristina. Denies any chest pain. Check echocardiogram. (5) Ischemic cardiomyopathy: Well compensated. Monitor for fluid overload. Last echocardiogram shows an EF 40% with regional wall motion abnormality, grade 1 diastolic dysfunction. (6) Diabetes: Continue with home dose of Lantus. Insulin sliding scale. Carb consistent cardiac diet. (7) Essential hypertension: Goal blood pressure less than 140/90 mmHg. Continue with home dose of lisinopril and beta-cristina for now. Continue to monitor. (8) Dyslipidemia: History of statin intolerance. Check lipid panel. Continue home dose of Zetia. (9) Statin intolerance: Plan Analgesia: [place] to 6 hours as needed, morphine 2 mg every 4 hours as needed Glycemic control: Lantus, insulin sliding scale low-dose protocol Nutrition: Carb consistent cardiac diet. N.p.o. after midnight CODE STATUS: Full code PUD prophylaxis: Protonix DVT prophylaxis: Foot pumps for DVT prophylaxis Discharge planning: Home with home health versus SNF as per PT evaluation postoperatively. Admit to [facility] floor. This documentation was created by [employer] topper packer software. Every effort was made to ensure accuracy of topper packer. Any obvious errors or omissions should be clarified with the author of the document. Attestations Medical Necessity Statement*: Admission for more than 2 midnights for management of hip fracture, wrist fracture post fall in a patient with a recent PCI for non-ST elevation RI Time Spent in Patient Care: Greater than 35 minutes Coding Level of Care Code Acute Code for Chg Fwd Diagnoses Fall W19.XXXA Closed intertrochanteric fracture of left hip S72.142A Closed fracture of distal end of left radius S52.502A S/P coronary artery stent placement Z95.5 Ischemic cardiomyopathy I25.5 Diabetes E11.9 Essential hypertension I10 Dyslipidemia E78.5 Statin intolerance Z78.9
[2022-03-29 14:40] LABS: Amphetamines Screen Urine Negative (Negative); Barbiturates Screen Urine Negative (Negative); Benzodiazepines Screen Urine Negative (Negative); Cocaine Screen Urine Negative (Negative); Opiate Screen Urine Positive (Negative); PCP Screen Urine Negative (Negative); THC Screen Urine Negative (Negative)
--- NOTE | 2022-03-29 14:48 | USCV_ITS ---
Derik Vitale Age: 66 Gender: M : 1955 Exam Date: 03/29/2022 15:19 Ordering Phys: Varghese Thompson MD Technologist: GREYSON Exam Location: [facility] [place] Indication: CHRONIC HEART FAILURE, ISCHEMIC CARDIOMYOPATHY BP: 148 / 74 HR: 80 Rhythm: Sinus Technical Quality: Suboptimal MEASUREMENTS (Male / Female) Normal Values 2D ECHO LVOT Diameter 2.0 cm LV Ejection Fraction MOD 2C 68.2 % LV Ejection Fraction 2C AL 68.9 % LA Diameter 3.0 cm LA Width 2.4 cm LA Height 5.3 cm RA Width 2.5 cm RA Height 5.6 cm Aorta at Sinotubular Diameter 2.6 cm M-MODE Aortic Annulus Diameter 3.3 cm LA Ao Ratio MM 0.9 MV E Point Septal Separation 0.4 cm DOPPLER AV Peak Velocity 141.0 cm/s LVOT Peak Velocity 111.0 cm/s AV Area Cont Eq vti 2.7 cm squared AV Area Cont Eq pk 2.5 cm squared MV Peak Velocity 94.0 cm/s MV Area PHT 2.5 cm squared Mitral E to A Ratio 0.9 MV E' Velocity 43.0 cm/s Mitral E to MV E' Ratio 7.1 Mitral E to LV E' Lateral Ratio 6.1 Mitral E to LV E' Septal Ratio 8.4 TR Peak Velocity 157.2 cm/s TR Peak Gradient 9.9 mmHg TR Mean Velocity 118.2 cm/s TR Mean Gradient 6.0 mmHg TR Velocity Time Integral 28.5 cm TV Peak E Velocity 60.0 cm/s Right Atrial Pressure 8.0 mmHg Pulmonary Artery Systolic Pressu 17.9 mmHg PV Peak Velocity 152.0 cm/s RV Acceleration Time 0.1 s RV Ejection Time 0.3 s RV AcT/ET 0.4 FINDINGS Left Ventricle Normal left ventricular size, systolic function with no regional wall motion abnormalities. Left ventricular ejection fraction is estimated at 65 %. Normal diastolic function. Right Ventricle Normal right ventricular size and systolic function. RVSP could not be calculated due to incomplete tricuspid regurgitation velocity profile. Right Atrium Normal right atrial size. Left Atrium Left atrium not well visualized. Mitral Valve Structurally normal mitral valve. No mitral valve stenosis. No significant mitral valve regurgitation. Aortic Valve Probably trileaflet aortic valve. No aortic valve stenosis. Tricuspid Valve Structurally normal tricuspid valve. Tricuspid valve not well visualized. Pulmonic Valve Pulmonic valve not well visualized. No pulmonary valve stenosis. Pericardium Trivial pericardial effusion. Aorta Normal aortic root. IVC Inferior vena cava not visualized. CONCLUSIONS 1. Normal left ventricular size, systolic function with no regional wall motion abnormalities. Left ventricular ejection fraction is estimated at 65 %. Normal diastolic function. 2. Normal right ventricular size and systolic function. 3. Trivial pericardial effusion. 4. No prior similar studies to compare. Mila Herring MD (Electronically Signed) Final Date: 29 March 2022 18:17 S
--- NOTE | 2022-03-29 14:57 | ECG_ITS ---
[facility] Test Date: 2022-03-29 Pat Name: Derik Vitale Department: Room: Gender: Male Build Master: : 1955 Requested By: Varghese Thompson Order Number: [id number] Cathryn MD: Trevon Roberto M.D. Measurements Intervals [place] Rate: 81 P: 49 UT: 159 QRS: -62 QRSD: 90 T: 6 QT: 361 QTc: 421 Interpretive Statements SINUS RHYTHM LEFT AXIS DEVIATION [QRS AXIS < -30] PATTERN CONSISTENT WITH PULMONARY DISEASE Compared to ECG 01/02/2022 06:06:37 Myocardial infarct finding no longer present Electronically Signed On 03-29-2022 21:44:57 MEDICAL DEVICE by Trevon Roberto M.D. [email or web address]
[2022-03-29] MEDS: morphine 4 mg/mL SDV 1 mL 2 MG IVP (14:59)
[2022-03-29] MEDS: HYDROcodone-acetaminophen 5-325 mg Tablet 1 TAB PO ×3 (14:59→23:01)
[2022-03-29 15:12] LABS: Iron 109 ug/dL (59-158); Total Iron Binding Capacity 302 mcg/dl; Unsaturated Iron Binding 193 ug/dL (112-347)
[2022-03-29 15:28] LABS: Procalcitonin 0.02 ng/mL (0-0.5); Vitamin B12 452 pg/mL (232-1245)
[2022-03-29 15:40] LABS: Folate Level > 20.0 ng/mL (4.5-32.2)
[2022-03-29] MEDS: perflutren protein-a microsphr 0.22 mg/mL SDV 3 mL IV (15:52)
--- NOTE | 2022-03-29 16:37 | PC.NURSE ---
Deepthi ROSA took report
[2022-03-29] MEDS: metoprolol tartrate 50 mg Tablet PO (17:34)
[2022-03-29] MEDS: insulin glargine 100 units/1 mL 56 UNIT SUBCUT (18:12)
--- NOTE | 2022-03-29 18:21 | P.CONIM_ITS ---
Providers/Reason For Consult Consulting Physician/Specialty*: Keith Dickerson; orthopedic surgeon Reason for Consult*: Left hip fracture, left distal radius fracture Attending Physician: Varghese Thompson MD Primary Care Provider: Flores Lino NP History of Present Illness History of Present Illness Derik Vitale is a 66 year old male employed with [employer] of [place]. 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 He describes slipping and falling approximately 12 feet landing on his left side and extended left arm. He described immediate pain in both. He was transferred to our emergency room. A CT scan of the head chest abdomen and pelvis were obtained with no intracranial pathology, solid organ injury or spinal fracture. He is admitted for treatment of his left distal radius and ulna. He describes over the past hour some increased pain in his wrist. He describes burning on the volar aspect of his thumb and index finger. The patient has a significant cardiac history. He reportedly sustained a WA on 01/02/2022 and was treated here by Dr. Bhandari with stent placement. He has diabetes mellitus he states with reasonable control Review of Systems Card: Denies: chest pain, palpitations, irregular heart rhythm, syncope or dyspnea on exertion Resp: Reports: productive cough; Denies: dyspnea or wheezing GI: Denies: abdominal pain, nausea or vomiting Medications/Allergies Home Medications Medication Instructions Recorded Confirmed Last Taken Type ascorbic acid (vitamin C) 500 mg 500 mg PO DAILY 01/02/22 03/29/22 03/29/22 History tablet,extended release (Vitamin C ER) biotin-alpha lipoic 1 tab PO DAILY 01/02/22 03/29/22 03/29/22 History [id number] 75 mg-300 mcg tablet cinnamon bark 500 mg capsule 500 mg PO DAILY 01/02/22 03/29/22 03/29/22 History (Cinnamon) garlic 200 mg tablet 200 mg PO DAILY 01/02/22 03/29/22 03/29/22 History lisinopril 20 mg tablet 20 mg PO DAILY 01/02/22 03/29/22 03/29/22 History magnesium 30 mg tablet 30 mg PO DAILY 01/02/22 03/29/22 03/29/22 History metformin 500 mg tablet 1,000 mg PO BID 01/02/22 03/29/22 03/29/22 History omega-3 fatty acids-fish oil 684 1 cap PO DAILY 01/02/22 03/29/22 03/29/22 History mg-1,200 mg capsule,delayed release tumeric 100 mg-montse 150 mg-olive 1 cap PO DAILY 01/02/22 03/29/22 03/29/22 History 50 mg-oreg 150 mg-caprylate capsule zinc acetate 50 mg (zinc) capsule 50 mg PO DAILY 01/02/22 03/29/22 03/29/22 History nitroglycerin 0.4 mg sublingual 0.4 mg sublingual Q5M PRN Chest 01/03/22 03/29/22 Unknown Rx tablet Pain #25 tabs aspirin 81 mg chewable tablet 81 mg PO DAILY #90 tabs 01/25/22 03/29/22 03/29/22 Rx clopidogrel 75 mg tablet 75 mg PO DAILY #90 tabs 01/25/22 03/29/22 03/29/22 Rx metoprolol tartrate 50 mg tablet 50 mg PO BID #180 tabs 01/25/22 03/29/22 03/29/22 Rx insulin aspart U-100 100 unit/mL See Rx Instructions .Route .COMPLEX 03/17/22 03/29/22 Unknown History (3 mL) subcutaneous pen (Novolog FlexPen U-100 Insulin aspart) semaglutide 3 mg tablet (Rybelsus) 7 mg PO DAILY 03/17/22 03/29/22 03/29/22 History ezetimibe 10 mg tablet (Zetia) 10 mg PO DAILY #90 tabs 03/24/22 03/29/22 03/29/22 Rx insulin glargine 100 unit/mL (3 56 unit (0.56 mL) SUBCUT BID #15 mL 03/24/22 03/29/22 03/29/22 Rx mL) subcutaneous pen (Lantus Solostar U-100 Insulin) benzonatate 100 mg capsule 200 mg PO BEDTIME PRN Cough 03/29/22 03/29/22 Unknown History Allergies Allergy/AdvReac Type Severity Reaction Status Date / Time clarithromycin [From Biaxin] Allergy Unknown Verified 01/09/22 09:02 Current Medications Generic Name Dose Route Start Last Admin Trade Name Freq PRN Reason Stop Dose Admin Hydrocodone Bitart/Acetaminophen 1 tab 03/29/22 14:48 03/29/22 14:59 Hydrocodone-Acetaminophen 5-325 Mg Tablet PO 1 tab Q4H PRN Administration MODERATE TO SEVERE PAIN Insulin Glargine 56 unit 03/29/22 18:00 03/29/22 18:12 Insulin Glargine 100 Units/1 Ml SUBCUT 56 unit BID AMNA Administration Metoprolol Tartrate 50 mg 03/29/22 18:00 03/29/22 17:34 Metoprolol Tartrate 50 Mg Tablet PO 50 mg BID AMNA Administration Morphine Sulfate 4 mg 03/29/22 11:39 03/29/22 11:56 Morphine 4 Mg/Ml Sdv 1 Ml IVP 4 mg ONCE PRN Administration SEVERE PAIN Morphine Sulfate 4 mg 03/29/22 14:48 03/29/22 17:29 Morphine 4 Mg/Ml Sdv 1 Ml IVP 4 mg Q4H PRN Administration SEVERE PAIN Morphine Sulfate 2 mg 03/29/22 14:48 03/29/22 14:59 Morphine 4 Mg/Ml Sdv 1 Ml IVP 2 mg Q4H PRN Administration SEVERE PAIN PFSH Acute PFSH: Medical History (Updated 03/29/22 @ 14:29 by Varghese Thompson MD) Acute non-ST segment elevation myocardial infarction (NSTEMI) following previous myocardial infarction CAD (coronary artery disease) Chest pressure Diabetes Dyslipidemia Essential hypertension History of COVID-19 Ischemic cardiomyopathy Statin intolerance Surgical History History of cholecystectomy S/P coronary artery stent placement mid LAD Social History Smoking and tobacco status: former smoker (1994) Vitals/I&O/Wt Last Vital Signs Temp 97.7 F 03/29/22 10:48 Pulse 78 03/29/22 17:16 Resp 16 03/29/22 17:29 BP 160/89 03/29/22 17:16 Pulse Ox 97 03/29/22 17:16 O2 Del Method 03/29/22 17:17 03/29/22 03/29/22 03/29/22 06:59 14:59 22:59 Output Total 950 / 950 Balance -950 / -950 Weight last 48 hrs Weight 218 lb 3.2 oz Weight 210 lb Physical Exam Narrative: Is a healthy appearing 66-year-old male with a splint on his left arm. He has complaints of pain. He has no tenderness about his head or cervical spine. His left upper extremity splint is not removed. He has minimal motion of his digits due to the splint. He has good capillary refill in the tip of his left digits He has subjective diminished sensation in the volar aspect of the thumb and index finger There is no visible deformity of the left lower extremity but is exquisite pain with motion of the left hip He has a palpable left dorsalis pedis pulse. Will flex and extend his left toes and ankle. Sensation is intact in the left foot. Urinary Catheter Management: Montano: Cath Placed During This Visit: yes Reason for Continuing Indwelling Catheter: Required Immobilization for Trauma or Surgery or Anesthesia Urinary Catheter Date of Insertion: 03/29/22 Urinary Catheter Time of Insertion: 13:54 Data 03/29/22 10:52 03/29/22 10:52 Xray Ortho: My impression: 2 views of the left hip are personally interpreted. The patient appears to have a nondisplaced left intertrochanteric hip fracture. Slight varus and appears to be in some extension across the greater trochanter. 2 views of the forearm are obtained. The patient has a highly comminuted distal radius fracture with some shortening. No ulnar styloid fracture is identified. A&P Assessment and plan (1) Closed intertrochanteric fracture of left hip: The patient has a unstable fracture of the left hip. To allow him to be mobilized and regain ambulatory status I have suggested surgical stabilization. I think this can reasonably done with an intramedullary device I discussed options with the []. I told them we could treat this nonoperatively but certainly they would be at risk for medical problems without surgery. Theywould have problems with pain that would require narcotics for pain control. They would require a long period of bedrest loan supervisor risk for pneumonia and skin b reakdown. I discussed surgical intervention with the patient. I told them with open reduction internal fixation they should be able to be mobilized and resume ambulatory status. We can eliminate the problems associated with prolonged bed rest and would have better control of pain. Certainly there would be inherent risk with surgery. These would would include the risk of cardiac complications, stroke, infection, and even . I discussed risk of any orthopedic implant including nonunion, malunion, a component failure. I discussed the possible need for component removal. I discussed risk of deep venous thromboses and pulmonary emboli that are present with any treatment and the importance of DVT prophylaxis. They expressed good understanding of alternative treatments, seem to comprehend, and agrees to surgical intervention. (2) Closed fracture of distal end of left radius: We will be able to get a better look at what is going on with some traction in the operating room. I am not very optimistic that anatomic fixation could be obtained with a volar or even fragmentary plating. The patient will have some demands on this weightbearing with a walker. I think her best option would be standing plate. I will have the conventional plate system available if with traction it looks like a anatomic reduction could be obtained. We will follow the burning pain and numbness in his hand closely. We will have the placed broaden and I would like to proceed with treatment of the distal radius as soon as possible and we will likely add an additional carpal tunnel to address potential median nerve injury. I told him that he likely will have some atilio nued pain and stiffness in the wrist as I do not think direct anatomic fixation would be stable. I told him you will ultimately need removal of the spanning wrist plate deficit applied. I discussed risk of bleeding and infection. Discussed risk of nerve injury in particular my concerns about the median nerve. Coding Level of Care Code Acute Code for [facility] Diagnoses Closed intertrochanteric fracture of left hip S72.142A Closed fracture of distal end of left radius S52.502A
--- NOTE | 2022-03-29 21:43 | PC.NURSE ---
Teri with [employer] called from patient's employer insurance to check on patient and to see if there have been any updates. This nurse informed her that that patient was stable and we have been trying to manage his pain and was scheduled for surgery tomorrow for an ORIF of left hip and distal radius. She stated that a field services analyst would probably come by the hospital tomorrow and speak with [employer] case briefer. She left the number [phone] to call her back if needed.
[2022-03-29] MEDS: ketorolac 30 mg/mL INJ 15 MG IVP (22:26)
[2022-03-30] VITALS (29 sets, daily range): BP systolic 109–143; BP diastolic 53–93; PULSE 65–100; RESP 15–24; TEMP 36.2–36.9; O2SAT 93–100; BMI 31.7
--- NOTE | 2022-03-30 | XR_ITS ---
WS: [id number] Exam: XR wrist LT 2V [id number] Date/Time of Exam: 03/30/2022 12:00 AM Reason For Exam: LEFT DISTAL RADIAL FX, ORIF AP and lateral intraoperative C-arm images of the left wrist are submitted. The previously noted comminuted fracture of the distal radius has been reduced and appears to be in s atisfactory alignment for healing. Final images depict a dorsal plate bridging the distal radius anch ored in the third metacarpal . XR/XR wrist LT 2V [id number] IMPRESSION: 1. Satisfactory reduction and internal fixation involving a comminuted fracture of the distal radius.
--- NOTE | 2022-03-30 | XR_ITS ---
WS: [id number] Exam: XR hip LT 2-3V wo/w pel* [id number] Date/Time of Exam: 03/30/2022 12:00 AM Reason For Exam: Left intertrochanteric hip fracture AP and lateral intraoperative C-arm images of the left hip are submitted for evaluation. Final images demonstrate internal fixation involving an intertrochanteric fracture of the left hip. A lignment is anatomic for healing. An intramedullary mirna and femoral neck screw stabilize the fracture . XR/XR hip LT 2-3V wo/w pel* [id number] IMPRESSION: 1. Satisfactory ORIF involving an intertrochanteric fracture of the left hip.
[2022-03-30] MEDS: HYDROmorphone 1 mg/mL INJ 1 mL IVP ×3 (00:19→05:24)
[2022-03-30] MEDS: fentaNYL 25 mcg Patch 1 PATCH TRANSDERMA (01:52)
[2022-03-30 02:31] LABS: Basophils % 0.4 %; Eosinophils # 0.1 10^3/uL (0.0-0.8); Eosinophils % 0.8 %; Hematocrit 37.2 % (42.0-52.0); Hemoglobin 12.5 g/dL (11.7-16.6); Lymphocytes % 23.2 %; Mean Corpuscular HGB Conc 33.6 g/dL (30.0-36.0); Mean Corpuscular Hemoglobin 30.7 pg (28.0-34.0); Mean Corpuscular Volume 91.4 fl (80-94); Monocytes # 0.9 10^3/uL (0.2-0.9); Monocytes % 10.6 %; Neutrophils # 5.51 10^3/uL (1.8-7.7); Neutrophils % 64.6 %; Nucleated Red Blood Cells % 0 %; Platelet Count 178 10^3/cmm (130-400); Red Blood Count 4.07 10^6/uL (4.1-5.3); Red Cell Distribution Width 11.5 % (12.1-15.1); White Blood Count 8.5 10^3/uL (4.0-10.0)
[2022-03-30 02:51] LABS: Alanine Aminotransferase 29 U/L (0-41); Albumin Level 3.7 g/dL (3.5-5.2); Alkaline Phosphatase 55 U/L (40-130); Anion Gap 14.7 (5-19); Aspartate Amino Transferase 23 U/L (0-40); Blood Urea Nitrogen 18 mg/dL (8-23); Calcium 8.3 mg/dL (8.5-10.5); Carbon Dioxide 26 mmol/L (22-29); Chloride 92 mmol/L (98-107); Chol HDL Ratio 2.88 mg/dL (1.0-5.00); Cholesterol 124 mg/dL (0-200); Globulin 2.5 g/dL (1.3-4.6); Glomerular Filtration Rate 135.6 mL/min (90-130); Glucose 148 mg/dL (65-115); HDL Cholesterol 43 mg/dL (60-100); LDL Cholesterol Calculated 62 mg/dL (50-129); Magnesium 1.7 mg/dL (1.7-2.3); Osmolality Calculated 273 mOsm/kg (285-295); Phosphorus 3.8 mg/dL (2.5-4.5); Potassium 3.7 mmol/L (3.5-5.1); Sodium 129 mmol/L (136-145); Total Bilirubin 1.3 mg/dL (0.15-1.2); Total Protein 6.2 g/dL (6.6-8.7); Triglycerides 97 mg/dL (0-150); VLDL Cholestrol Calculation 19 mg/dL (0-30)
[2022-03-30 02:58] LABS: Estmated Average Glucose 189; Hemoglobin A1C 8.2 % (4.0-6.0)
[2022-03-30] MEDS: HYDROcodone-acetaminophen 5-325 mg Tablet 1 TAB PO ×2 (03:21→10:03)
[2022-03-30] MEDS: lanolin oint 7 gm 1 APPLIC TOPICAL (05:48)
[2022-03-30] MEDS: ondansetron 2 mg/ML SDV 2 mL 4 MG IVP (06:20)
[2022-03-30] MEDS: ketorolac 30 mg/mL INJ 15 MG IVP (08:52)
[2022-03-30] MEDS: pantoprazole DR 40 mg Tablet PO (08:57)
[2022-03-30] MEDS: lisinopril 20 mg Tablet PO (08:57)
[2022-03-30] MEDS: metoprolol tartrate 50 mg Tablet PO (08:57)
[2022-03-30] MEDS: aspirin 81 mg Chew Tablet PO (08:58)
[2022-03-30] MEDS: ezetimibe 10 mg Tablet PO (09:00)
[2022-03-30] MEDS: HYDROmorphone 1 mg/mL INJ 1 mL 0.5 MG IVP (10:50)
--- NOTE | 2022-03-30 11:49 | P.PN_ITS ---
Subjective Subjective: Overnight patient was complaining of pain after which his pain medications were adjusted and he was started on IV Dilaudid and given a fentanyl patch. Post using of medications patient became slightly less responsive with decrease in respiratory drive but he maintained his airway. Today morning seen with at bedside. Patient is awake and alert. Denies any nausea, vomiting, headache. Vitals/I&O/Wt Last Vital Signs Temp 97.4 F L 03/30/22 08:00 Pulse 83 03/30/22 08:20 Resp 20 H 03/30/22 10:50 BP 131/66 03/30/22 08:00 Pulse Ox 96 03/30/22 08:20 O2 Del Method 03/30/22 08:20 03/29/22 03/30/22 03/30/22 22:59 06:59 14:59 Intake Total 0 / 0 60 / 60 Output Total 1400 / 1400 400 / 1800 Balance -1400 / -1400 -400 / -1800 60 / 60 Weight last 48 hrs Weight 100.244 kg Weight 100.017 kg Weight 98.974 kg Weight 95.254 kg Physical Exam Narrative: General: No acute distress, AO x3 HEENT: PERRLA, pupils bilaterally equal and reactive Chest: Normal vesicular breath sounds, no added sounds, equal good air entry bilaterally CVS: S1-S2 regular, no murmurs, no tachycardia, no gallops, no rubs Abdomen: Soft, nontender, no organomegaly, bowel sounds present Neuro: No focal deficits, no facial deformity, AO x3, power 5/5 in all limbs Extremity: Right wrist in splint Left leg pain antalgic position. Urinary Catheter Management: Montano: Cath Placed During This Visit: yes Reason for Continuing Indwelling Catheter: Required Immobilization for Trauma or Surgery or Anesthesia Urinary Catheter Date of Insertion: 03/29/22 Urinary Catheter Time of Insertion: 13:54 Data 03/30/22 01:40 03/30/22 01:40 A&P Assessment and plan (1) Fall: Mechanical fall. Denies any dizziness, chest pain, weakness in any of the limbs prior to the fall. Multiple trauma scans and imaging appreciated. (2) Closed intertrochanteric fracture of left hip: Orthopedic consulted from the ER. Plan for ORIF. N.p.o. currently. Start normal saline at 75 cc/h. Physical therapy, perioperative antibiotics as per surgical team. Anticoagulation as per surgical team. Pain control with Deepwater 5 mg every 4 hourly as needed, Dilaudid 0.5 every 4 hourly as needed. Toradol 15 mg every 8 hour as needed. Given recent history of STEMI, post PCI within the last 6 months on aspirin and Plavix patient is at high risk of bleeding while being on Plavix and is at a high risk of stent thrombosis if DAPT stopped. Patient is at high risk for cardiac event or bleeding for otherwise necessary surgery. Risks discussed in detail with patient and patient's family. They are both agreeable and understand. (3) Closed fracture of distal end of left radius: As per orthopedic team. Plan for conservative treatment. Splinting as per ER. (4) S/P coronary artery stent placement: Within last 6 months post non-ST elevation PA.. Continue with aspirin. Hold off on Plavix. Continue with Zetia, beta-cristina. Denies any chest pain. Check echocardiogram. (5) Ischemic cardiomyopathy: Well compensated. Monitor for fluid overload. Last echocardiogram shows an EF 40% with regional wall motion abnormality, grade 1 diastolic dysfunction. (6) Diabetes: Continue with home dose of Lantus. Insulin sliding scale. Carb consistent cardiac diet. (7) Essential hypertension: Goal blood pressure less than 140/90 mmHg. Continue with home dose of lisinopril and beta-cristina for now. Continue to monitor. (8) Dyslipidemia: History of statin intolerance. Check lipid panel. Continue home dose of Zetia. (9) Statin intolerance: Plan Analgesia: Deepwater to 6 hours as needed, Dilaudid 0.5 every 6 as needed, Toradol 1 5 mg every 8 hour as needed Glycemic control: Lantus, insulin sliding scale low-dose protocol Nutrition: N.p.o. currently. Carb consistent cardiac diet postoperatively CODE STATUS: Full code PUD prophylaxis: Protonix DVT prophylaxis: Foot pumps for DVT prophylaxis Discharge planning: Home with home health versus SNF as per PT evaluation postoperatively. Admit to [facility] floor. This documentation was created by [employer] pc installation engineer software. Every effort was made to ensure accuracy of pc installation engineer. Any obvious errors or omissions should be clarified with the author of the document. Attestations Medical Necessity Statement*: Requires further hospitalization management of hip fracture requiring ORIF in a patient with recent PCI for non-ST elevation PA Time Spent in Patient Care: Greater than 35 minutes Coding Level of Care Code Acute Code for [facility] Diagnoses Fall W19.XXXA Closed intertrochanteric fracture of left hip S72.142A Closed fracture of distal end of left radius S52.502A S/P coronary artery stent placement Z95.5 Ischemic cardiomyopathy I25.5 Diabetes E11.9 Essential hypertension I10 Dyslipidemia E78.5 Statin intolerance Z78.9
[2022-03-30] MEDS: sodium chloride 0.9% 1,000 ML 75 ML IV (12:02)
--- NOTE | 2022-03-30 12:33 | ANES.PREANE2 ---
Pre-Anesthetic Assessment Height/Weight: Height 1.78 m Weight 100.244 kg Temp Pulse Resp BP Pulse Ox O2 Del Method 97.4 F L 83 20 H 131/66 96 03/30/22 08:00 03/30/22 08:20 03/30/22 10:50 03/30/22 08:00 03/30/22 08:20 03/30/22 08:20 Preop Diagnosis: Left intertrochanteric hip fracture, left distal radius fracture Operation Date: 03/30/22 14:30 Proposed Procedures p ORIF Femur/ ORIF left radial(Left) - Keith Dickerson MD Familial anesthetic complications: None Was Beta Pretty taken within 24 hours: Yes Was Clonidine taken within 24 hours: N/A Last intake: Intake Last Liquid Date 03/29/22 Last Liquid Time 23:50 Last Solid Date 03/29/22 Last Solid Time 06:00 Social No alcohol and No tobacco Exam alert, oriented x 3, clear to auscultation bilaterally and regular rate & rhythm Airway Mallampati: Class II Dentition: other (missing teeth) Pulmonary Asthma (childhood) ?contracted Tuberculosis as a child from mother CV/HEM Stable Angina, Coronary Artery Disease, Hypertension and Myocardial Infarction (STEMI w/ stent 12/24) echo 2022 ?CONCLUSIONS ?1. Normal left ventricular size, systolic function with no ?regional wall motion abnormalities. Left ventricular ejection ?fraction is estimated at 65 %. Normal diastolic function. ?2. Normal right ventricular size and systolic function. ?3. Trivial pericardial effusion. ?4. No prior similar studies to compare. 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 Anesthetic Plan ASA status: 4 Anesthesia: General Risk of > 500 ml blood loss (7ml/kg in children): No Medications/Allergies Home Medications Medication Instructions Recorded Confirmed Last Taken Type ascorbic acid (vitamin C) 500 mg 500 mg PO DAILY 01/02/22 03/29/22 03/29/22 History tablet,extended release (Vitamin C ER) biotin-alpha lipoic 1 tab PO DAILY 01/02/22 03/29/22 03/29/22 History [id number] 75 mg-300 mcg tablet cinnamon bark 500 mg capsule 500 mg PO DAILY 01/02/22 03/29/22 03/29/22 History (Cinnamon) garlic 200 mg tablet 200 mg PO DAILY 10/03/29/22 03/29/22 History lisinopril 20 mg tablet 20 mg PO DAILY 01/02/22 03/29/22 03/29/22 History magnesium 30 mg tablet 30 mg PO DAILY 01/02/22 03/29/22 03/29/22 History metformin 500 mg tablet 1,000 mg PO BID 01/02/22 03/29/22 03/29/22 History omega-3 fatty acids-fish oil 684 1 cap PO DAILY 01/02/22 03/29/22 03/29/22 History mg-1,200 mg capsule,delayed release tumeric 100 mg-montse 150 mg-olive 1 cap PO DAILY 01/02/22 03/29/22 03/29/22 History 50 mg-oreg 150 mg-caprylate capsule zinc acetate 50 mg (zinc) capsule 50 mg PO DAILY 01/02/22 03/29/22 03/29/22 History nitroglycerin 0.4 mg sublingual 0.4 mg sublingual Q5M PRN Chest 01/03/22 03/29/22 Unknown Rx tablet Pain #25 tabs aspirin 81 mg chewable tablet 81 mg PO DAILY #90 tabs 01/25/22 03/29/22 03/29/22 Rx clopidogrel 75 mg tablet 75 mg PO DAILY #90 tabs 01/25/22 03/29/22 03/29/22 Rx metoprolol tartrate 50 mg tablet 50 mg PO BID #180 tabs 01/25/22 03/29/22 03/29/22 Rx insulin aspart U-100 100 unit/mL See Rx Instructions .Route .COMPLEX 03/17/22 03/29/22 Unknown History (3 mL) subcutaneous pen (Novolog FlexPen U-100 Insulin aspart) semaglutide 3 mg tablet (Rybelsus) 7 mg PO DAILY 03/17/22 03/29/22 03/29/22 History ezetimibe 10 mg tablet (Zetia) 10 mg PO DAILY #90 tabs 03/24/22 03/29/22 03/29/22 Rx insulin glargine 100 unit/mL (3 56 unit (0.56 mL) SUBCUT BID #15 mL 03/24/22 03/29/22 03/29/22 Rx mL) subcutaneous pen (Lantus Solostar U-100 Insulin) benzonatate 100 mg capsule 200 mg PO BEDTIME PRN Cough 03/29/22 03/29/22 Unknown History Allergies Allergy/AdvReac Type Severity Reaction Status Date / Time clarithromycin [From [facility] Allergy Unknown Verified 01/09/22 09:02 Current Medications Generic Name Dose Route Start Last Admin Trade Name Freq PRN Reason Stop Dose Admin Hydrocodone Bitart/Acetaminophen 1 tab 03/29/22 14:48 03/30/22 10:03 Hydrocodone-Acetaminophen 5-325 Mg Tablet PO 1 tab Q4H PRN Administration MODERATE TO SEVERE PAIN Aspirin 81 mg 03/30/22 09:00 03/30/22 08:58 Aspirin 81 Mg Chew Tablet PO 81 mg DAILY AMNA Administration Ezetimibe 10 mg 03/30/22 09:00 03/30/22 09:00 Ezetimibe 10 Mg Tablet PO 10 mg DAILY AMNA Administration Hydromorphone HCl 0.5 mg 03/30/22 09:07 03/30/22 10:50 Hydromorphone 1 Mg/Ml Inj 1 Ml IVP 0.5 mg Q4H PRN Administration MODERATE TO SEVERE PAIN Sodium Chloride 1,000 mls @ 75 mls/hr 03/30/22 12:00 03/30/22 12:02 Sodium Chloride 0.9% IV 75 mls/hr .[id number] [facility] Administration Insulin Glargine 56 unit 03/29/22 18:00 03/30/22 09:18 Insulin Glargine 100 Units/1 Ml SUBCUT Not Given BID [facility] Ketorolac Tromethamine 15 mg 03/29/22 22:03 03/30/22 08:52 Ketorolac 30 Mg/Ml Inj IVP 04/03/22 22:02 15 mg Q8H PRN Administration MODERATE PAIN Lanolin 1 applic 03/30/22 05:40 03/30/22 05:48 Lanolin Oint 7 Gm TOPICAL 1 applic PRN PRN Administration DRYNESS Lisinopril 20 mg 03/30/22 09:00 03/30/22 08:57 Lisinopril 20 Mg Tablet PO 20 mg DAILY AMNA Administration Metoprolol Tartrate 50 mg 03/29/22 18:00 03/30/22 08:57 Metoprolol Tartrate 50 Mg Tablet PO 50 mg BID [facility] Administration Ondansetron HCl 4 mg 03/29/22 14:48 03/30/22 06:20 Ondansetron 2 Mg/Ml Sdv 2 Ml IVP 4 mg Q6H PRN Administration NAUSEA AND VOMITING Pantoprazole Sodium 40 mg 03/30/22 09:00 03/30/22 08:[address] 40 Mg Tablet PO 40 mg DAILY AMNA Administration PFSH Anesthesia Medical History (Updated 03/29/22 @ 14:29 by Varghese Thompson MD) Acute non-ST segment elevation myocardial infarction (NSTEMI) following previous myocardial infarction CAD (coronary artery disease) Chest pressure Diabetes Dyslipidemia Essential hypertension History of COVID-19 Ischemic cardiomyopathy Statin intolerance Surgical History History of cholecystectomy S/P coronary artery stent placement mid LAD Social History Smoking and tobacco status: former smoker (1994) Data Anesthesia 03/30/22 01:40 03/30/22 01:40 Short CBC 03/29/22 03/30/22 Range/Units 10:52 01:40 WBC 8.3 8.5 (4.0-10.0) 10^3/uL Hgb 14.3 12.5 (11.7-16.6) g/dL Hct 43.0 37.2 L (42.0-52.0) % MCV 93.7 91.4 (80-94) fl Plt Count 194 178 (130-400) 10^3/cmm Neut % (Auto) 54.6 64.6 % Neut # (Auto) 4.51 5.51 (1.8-7.7) 10^3/uL BMP 03/29/22 03/30/22 10:52 01:40 Sodium 135 L 129 L Potassium 4.5 3.7 Chloride 98 92 L Carbon Dioxide 26 BUN 23 18 Creatinine 0.7 0.6 L Glucose 165 H 148 H Calcium 8.9 8.3 L Liver Function 03/29/22 03/30/22 Range/Units 10:52 01:40 Total Bilirubin 0.7 1.3 H (0.15-1.2) mg/dL AST 27 23 (0-40) U/L ALT 34 29 (0-41) U/L Alkaline Phosphatase 64 55 (40-130) U/L Albumin 4.0 3.7 (3.5-5.2) g/dL Urine 03/29/22 Range/Units 13:30 Urine Color Yellow (Yellow) Urine Appearance Clear (CLEAR) Urine pH 5 (5-7) Ur Specific [place] 1.005 (1.005-1.030) Urine Protein Trace (Negative) Urine Glucose (UA) 1+ H (Normal) Urine Ketones 1+ H (Negative) Urine Nitrate Negative (Negative) Urine Bilirubin Neg (Negative) Ur Leukocyte Esterase Trace H (Negative) Urine RBC Rare (0-2) /hpf Urine WBC Rare (0-5) /hpf Cardiac Studies: Echocardiogram 03/29/22
--- NOTE | 2022-03-30 12:50 | PC.CHAP ---
Pastoral Care Encounter/Spiritual Assessment Type of Contact [] Declined publications manager visit [] Patient/Family/Request visit [] Outpatient visit [] Follow-up visit [] Physician referral [] Code/Alert x[] Routine visit [] Staff referral [] Actively dying [] Patient sleeping [] Family support [] [] Out of room [] Palliative care [] [x] Receiving care in room [] Pre-surgical visit [] Trauma [] Long length of stay [] ICU visit [] Other: Relational/Emotional Strength [] Patient feels connected with others/family/visitors/staff [] Distress [] Loneliness/isolation [] Abandonment Spirituality of Patient [] Person of Annmarie [] Attends Confucianism of their Annmarie [] Believes in Prayer [] Reads Bible or Shinto materials [] There are Spiritual issues to be addressed Publications Manager Interventions [] Prayer [] Active listening [] Non-anxious presence [] Spiritual/emotional support [] Crisis/trauma care [] Spiritual counseling [] Bereavement support [] Provided bereavement packet [] Provided Bible/devotional materials [] Provided toy/stuffed animal, coloring book to patient or family member [] Provided Communion [] Anointing/Craig [] Salvation [] Completed spiritual assessment [] Other: Impact on Illness or Injury [] Angry [] Fearful [] Anxious [] Often cries [] Exhaustion [] Unable to work [] Unable to attend druze [] Unable to walk/stand [] Unable to read [] Unable to drive [] Unable to eat/drink [] Unable to sleep [] Unable to be with family [] Patient intubated [] Other: Summary Time spent with patient
[2022-03-30 12:56] LABS: Glucose Point of Care 185 mg/dL (70-110)
--- NOTE | 2022-03-30 13:58 | W.PM.OPSUD ---
Surgery/Procedure H&P Update DATE OF PROCEDURE: March 30, 2022 DATE H&P PERFORMED: 03/29/22 H&P UPDATE INFORMATION: I have examined patient prior to procedure CHANGES TO PREVIOUS DOCUMENTATION: Mr. Tolliver complains of continued burning pain and numbness in his left thumb index and long finger. He described this beginning last night after the injury. The temporal relationship would suggest the development of carpal tunnel syndrome. I am suggesting in addition to fixation of the left distal radius and left hip that we add an additional left carpal tunnel syndrome. PREOP DIAGNOSIS: Left intertrochanteric hip fracture, left distal radius fracture PLANNED PROCEDURE: Operation Date: 03/30/22 14:30 Proposed Procedures p ORIF Femur/ ORIF left radial(Left) and carpal tunnel release left wrist- Keith Dickerson MD
[2022-03-30] MEDS: ceFAZolin 2,000 MG in sodium chloride 0.9% (plus) 50 ML 100 MG IV (14:16)
--- NOTE | 2022-03-30 17:39 | PM.OP ---
Operative Report Date of procedure: March 30, 2022 Pre-op diagnosis: Preop Diagnosis Left intertrochanteric hip fracture, left distal radius fracture, left carpal tunnel syndrome Post-op diagnosis: same Procedure done: Open reduction internal fixation left hip with intramedullary device, open reduction internal fixation left distal radius with a spanning plate, left carpal tunnel release Implants: Acumed Aculoc-2 lng spanning wrist plate Essie 11mm short gamma nail, 100mm lag screw, 40mm distal locking screw Pathology: none sent Surgeon: Keith Dickerson Anesthesia: General Estimated blood loss (mL): 250 Findings: The patient had a highly comminuted intra-articular metaphyseal fracture of the left distal radius. He had a nondisplaced fracture of the intratrochanteric left hip with a nondisplaced greater trochanteric fracture. 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 He sustained a highly comminuted fracture of the left distal radius. Due to the degree of comminution it was not thought that interfragmentary fixation would be possible and a spanning plate application was chosen. He had a intratrochanteric left hip fracture that was treated with intramedullary device to allow improvement in pain and mobilization. During admission he had severe burning pain in his thumb index and long fingers in the median nerve distribution suggesting acute carpal tunnel syndrome and a carpal tunnel release was performed Procedure: The patient was taken to the operating room and given a general anesthesia. He was given 2 g of Ancef. He was initially prepped and draped on the fracture table with his left arm over a radiolucent arm board. A timeout was performed. Initial longitudinal traction was applied across the wrist to get a better understanding of fracture fragments. It was felt that there was significant comminution involving not only the distal radial surface but the metaphyseal bone in anatomic fragment specific fixation would not be possible. We chose to proceed with the spanning plate application. The large plate was placed over the forearm and found to provide verification of a satisfactory positioning of the plate. A skin marker was used to riley incisions over the middle finger metacarpal, dorsal wrist, and distal radial forearm for plate application. An initial 4 cm long incision was made over the long finger metacarpal dissection was carried down bluntly revealing the metacarpal shaft. A second 4 cm long incision was made over the distal radius over the radial styloid. Dissection was carried down to the dorsal extensor tendons. The extensor pollicis longus tendon was identified and freed from its sheath at Hanny's tubercle. Finally over the distal radius in a slightly more radial position a 4 cm long incision and dissection was carried down tween the radial wrist extensors and brachial radialis exposing the dorsal distal radius. The spanning plate was then passed from distal to proximal across the fracture. Provisional fixation was accomplished with a single nonlocking screw through the distal plate longitudinal traction was applied across the wrist and a second nonlocking screw was placed the oblong hole in the proximal plate. Intraoperative imaging was obtained to verify that the distal radius is brought out to length and the articular surface was reasonably congruent. An additional 3 distal and 3 proximal locking screws were placed securing the plate to bone. A 3 cm long incision was made in line with the fourth ray from the distal edge of the carpal tunnel extending proximally. The subcutaneous fat and palmar fascia was divided with a scalpel blade. Under loupe magnification the ulnar neurovascular bundle was identified distally. A hemostat could be passed under the transverse carpal ligament allowing the distal 25% to be divided. A slotted guide was then passed beneath the transverse carpal ligament and the middle 50% divided. The space itself was very tight and constrained with engorgement of veins and bulging capsule at the base of the carpal tunnel. Blunt scissors were then passed over the guide freeing the proximal ligament. All incisions were cleaned with saline. Carpal tunnel incision was closed with simple 3-0 Prolene. The wrist plate incisions were closed with deep 3-0 Vicryl and 3-0 Prolene. Xeroflo gauze, 4 x 4's, Webril, and an Martir wrap were all applied. Alll drapes were removed and attention was then focused on the left hip The patient was positioned on the fracture table with the right lower extremity in gentle traction. A timeout was performed. A 2 cm long incision was made proximal to the greater trochanter scalpel blade. Dissection was carried down to tip the greater trochanter. A guidepin was passed manually from the tip of the trochanter down the shaft. The proximal reamer was utilized to open up the proximal canal. An 11 mm mm short Essie gamma nail was passed down the canal without difficulty. Under visualization of fluoroscopy a guidepin was driven up into the head and neck at 125? angle. It was measured at 100 mm in length and a lag screw similar length was then placed and locked into place with the proximal locking screw. The static guides were then used to attempt pto ass the distal locking screw. The Guides to the Evaluation of Permanent Impairment, sixth edition. Did not align with the distal static screw hole and the guide was removed. True lateral radiograph of the distal locking hole was obtained and the drill run in a more posterior to anterior direction to engage in the locking hole. A 40 mm distal locking screw was placed. Intraoperative imaging was obtained verifying satisfactory position of the hardware and reduction of the fracture. Deep tissues were closed with 0 Vicryl as were subcutaneous tissues. The skin was closed with skin vani. Sterile dressings were applied. The patient was extubated and taken to recovery room in stable condition.
[2022-03-30 17:58] LABS: Glucose Point of Care 159 mg/dL (70-110)
[2022-03-30] MEDS: morphine 4 mg/mL SDV 1 mL IVP ×2 (18:42→22:27)
--- NOTE | 2022-03-30 18:43 | PC.NURSE ---
gave morphine push before oral oxy pt NPO x 24 hours
--- NOTE | 2022-03-30 18:46 | PC.NURSE ---
pt arrived back from surgery
--- NOTE | 2022-03-30 18:49 | XRR_ITS ---
PROCEDURE INFORMATION: Exam: XR Right Elbow Exam date and time: 03/30/2022 7:07 PM Age: 66 years old Clinical indication: Pain; Elbow; Right; Additional info: S/P, fall yesterday 14 ft, pain and bruising today TECHNIQUE: Imaging protocol: Radiologic exam of the Right elbow. Views: 1 or 2 views. COMPARISON: No relevant prior studies available. FINDINGS: Bones/joints: Minimal distal triceps tendon degenerative calcification. Soft tissues: Normal. XR/XR elbow RT 2V [id number] IMPRESSION: 1. Negative for fracture or dislocation. 2. Minimal distal triceps tendon degenerative calcification.
[2022-03-30 19:07] LABS: Hemoglobin 12.7 g/dL (11.7-16.6)
[2022-03-30] MEDS: oxyCODONE 5 mg IR Tab/Cap PO (21:20)
[2022-03-30] MEDS: ceFAZolin 1,000 MG in sodium chloride 0.9% (plus) 50 ML 100 MG IV (21:25)
[2022-03-31] VITALS (17 sets, daily range): BP systolic 101–157; BP diastolic 60–70; PULSE 84–102; RESP 14–20; TEMP 36.6–36.9; O2SAT 90–98
[2022-03-31] MEDS: morphine 4 mg/mL SDV 1 mL IVP ×2 (00:01→02:49)
[2022-03-31] MEDS: oxyCODONE 5 mg IR Tab/Cap PO ×6 (01:37→23:47)
--- NOTE | 2022-03-31 04:19 | PC.NURSE ---
Fentanyl patch removed from right shoulder on 03/30/22 at 0530 per physician order. Wasted and witnessed by NATACHA Munson.
[2022-03-31 05:09] LABS: Basophils % 0.2 %; Hemoglobin 11.1 g/dL (11.7-16.6); Lymphocytes # 1.1 10^3/uL (0.8-4.8); Lymphocytes % 11.4 %; Mean Corpuscular HGB Conc 33.6 g/dL (30.0-36.0); Mean Corpuscular Hemoglobin 31.8 pg (28.0-34.0); Mean Corpuscular Volume 94.6 fl (80-94); Monocytes # 1.2 10^3/uL (0.2-0.9); Monocytes % 12.2 %; Neutrophils # 7.18 10^3/uL (1.8-7.7); Neutrophils % 75.8 %; Nucleated Red Blood Cells % 0 %; Platelet Count 165 10^3/cmm (130-400); Red Blood Count 3.49 10^6/uL (4.1-5.3); Red Cell Distribution Width 11.8 % (12.1-15.1); White Blood Count 9.5 10^3/uL (4.0-10.0)
[2022-03-31 05:47] LABS: Alanine Aminotransferase 26 U/L (0-41); Albumin Level 3.5 g/dL (3.5-5.2); Alkaline Phosphatase 59 U/L (40-130); Anion Gap 14.6 (5-19); Aspartate Amino Transferase 24 U/L (0-40); Blood Urea Nitrogen 13 mg/dL (8-23); Calcium 8.1 mg/dL (8.5-10.5); Carbon Dioxide 25 mmol/L (22-29); Chloride 96 mmol/L (98-107); Globulin 2.5 g/dL (1.3-4.6); Glomerular Filtration Rate 113.5 mL/min (90-130); Glucose 219 mg/dL (65-115); Osmolality Calculated 279 mOsm/kg (285-295); Potassium 4.6 mmol/L (3.5-5.1); Sodium 131 mmol/L (136-145); Total Bilirubin 1.1 mg/dL (0.15-1.2)
[2022-03-31] MEDS: ceFAZolin 1,000 MG in sodium chloride 0.9% (plus) 50 ML 100 MG IV ×2 (06:24→13:11)
--- NOTE | 2022-03-31 07:49 | PM.PN ---
Subjective Subjective: Overall feeling much better. More left wrist pain than left hip. Burning pain digits gone. Still some numbness thumb and index finger Vitals/I&O/Wt Last Vital Signs Temp 98.5 F 03/31/22 03:17 Pulse 89 03/31/22 06:00 Resp 18 03/31/22 06:24 BP 132/70 03/31/22 03:17 Pulse Ox 97 03/31/22 03:17 O2 Del Method 03/31/22 03:17 O2 Flow Rate 2 03/30/22 19:51 03/30/22 03/31/22 03/31/22 22:59 06:59 14:59 Intake Total 780 / 890 960 / 1850 50 / 50 Output Total 650 / 1300 2700 / 4000 Balance 130 / -410 -1740 / -2150 50 / 50 Weight last 48 hrs Weight 221 lb Weight 220 lb 8 oz Weight 218 lb 3.2 oz Weight 210 lb Physical Exam Narrative: Expected swelling left wrist digits. Flexex and extends ulnar 4 digits. Flexes and extends thumb Subjective decreased sensation volar thumb and index finger. Left hip with slight staining dressing. Minimal swelling thigh Moves left toes and ankle Sensation intact left foot. Urinary Catheter Management: Montano: Cath Placed During This Visit: yes Reason for Continuing Indwelling Catheter: Required Immobilization for Trauma or Surgery or Anesthesia Urinary Catheter Date of Insertion: 03/29/22 Urinary Catheter Time of Insertion: 13:54 Data 03/31/22 04:36 03/31/22 04:36 A&P Assessment and plan (1) Closed intertrochanteric fracture of left hip: (2) Status post open reduction and internal fixation (ORIF) of fracture: Hip fracture pain well controlled. May mobilize full weightbearing (3) Closed fracture of distal end of left radius: (4) Status post open reduction and internal fixation (ORIF) of fracture: Expected pain. May weight-bear fully with platform walker. Occupational Therapy to work on range of motion. (5) Carpal tunnel syndrome of left wrist: (6) Postoperative state: Dysesthetic pain in median nerve distribution. Resolved. Numbness left hand digits much better. Plan Discharge home when independent with walker with home health Attestations Medical Necessity Statement*: Discharge home when independent with walker with home health Coding Level of Care Code Acute Code for Chg Fwd Diagnoses Closed intertrochanteric fracture of left hip S72.142A Status post open reduction and internal fixation (ORIF) of fracture Z98.890; Z87.81 Closed fracture of distal end of left radius S52.502A Status post open reduction and internal fixation (ORIF) of fracture Z98.890; Z87.81 Carpal tunnel syndrome of left wrist G56.02 Postoperative state Z98.890
[2022-03-31] MEDS: enoxaparin 40 mg/0.4 mL Syringe SUBCUT (09:57)
[2022-03-31] MEDS: CELEcoxib 100 mg Capsule PO ×2 (09:58→17:14)
[2022-03-31] MEDS: gabapentin 300 mg Capsule PO ×2 (09:58→17:14)
[2022-03-31] MEDS: metoprolol tartrate 50 mg Tablet PO ×2 (09:58→17:15)
[2022-03-31] MEDS: ezetimibe 10 mg Tablet PO (09:58)
[2022-03-31] MEDS: aspirin 81 mg Chew Tablet PO (09:59)
[2022-03-31] MEDS: pantoprazole DR 40 mg Tablet PO (09:59)
[2022-03-31] MEDS: insulin glargine 100 units/1 mL 56 UNIT SUBCUT ×2 (10:00→17:14)
[2022-03-31] MEDS: lisinopril 20 mg Tablet PO (10:07)
[2022-03-31] MEDS: TRAMadol 50 mg Tablet PO ×3 (10:07→23:53)
[2022-03-31] MEDS: insulin lispro 100 unit/1 mL SUBCUT ×3 (13:11→21:40)
--- NOTE | 2022-03-31 14:12 | PM.PN ---
Subjective Subjective: No acute events overnight. Seen with spouse at bedside. Patient is awake and alert able to have complete conversation. States feeling a lot better already after the OR but complaining of pain in the wrist. Asking for increase in medications if possible. We discussed that already he is on multiple pain medications and blood pressure is trending on borderline normal side so we will hold off on adding any more narcotics. We did discuss adding muscle relaxants. Vitals/I&O/Wt Last Vital Signs Temp 97.8 F 03/31/22 08:44 Pulse 100 03/31/22 08:44 Resp 14 03/31/22 09:59 BP 157/68 03/31/22 08:44 Pulse Ox 98 03/31/22 08:44 O2 Del Method 03/31/22 08:44 O2 Flow Rate 2 03/31/22 08:00 03/30/22 03/31/22 03/31/22 22:59 06:59 14:59 Intake Total 780 / 890 960 / 1850 1096 / 1096 Output Total 650 / 1300 2700 / 4000 Balance 130 / -410 -1740 / -2150 1096 / 1096 Weight last 48 hrs Weight 100.244 kg Weight 100.017 kg Weight 98.974 kg Physical Exam Narrative: General: No acute distress, AO x3 HEENT: PERRLA, pupils bilaterally equal and reactive Chest: Normal vesicular breath sounds, no added sounds, equal good air entry bilaterally CVS: S1-S2 regular, no murmurs, no tachycardia, no gallops, no rubs Abdomen: Soft, nontender, no organomegaly, bowel sounds present Neuro: No focal deficits, no facial deformity, AO x3, power 5/5 in all limbs Extremity: Right wrist in splint Left hip surgically bandaged without any drainage. Urinary Catheter Management: Montano: Cath Placed During This Visit: yes Reason for Continuing Indwelling Catheter: Required Immobilization for Trauma or Surgery or Anesthesia Urinary Catheter Date of Insertion: 03/29/22 Urinary Catheter Time of Insertion: 13:54 Data 03/31/22 04:36 03/31/22 04:36 A&P Assessment and plan (1) Fall: Mechanical fall. Denies any dizziness, chest pain, weakness in any of the limbs prior to the fall. Multiple trauma scans and imaging appreciated. (2) Closed intertrochanteric fracture of left hip: Orthopedic consulted from the ER. Plan for ORIF. N.p.o. currently. Start normal saline at 75 cc/h. Physical therapy, perioperative antibiotics as per surgical team. Anticoagulation as per surgical team. Pain control with [place] 5 mg every 4 hourly as needed, Dilaudid 0.5 every 4 hourly as needed. Toradol 15 mg every 8 hour as needed. Given recent history of STEMI, post PCI within the last 6 months on aspirin and Plavix patient is at high risk of bleeding while being on Plavix and is at a high risk of stent thrombosis if DAPT stopped. Patient is at high risk for cardiac event or bleeding for otherwise necessary surgery. Risks discussed in detail with patient and patient's family. They are both agreeable and understand. (3) Closed fracture of distal end of left radius: As per orthopedic team. Plan for conservative treatment. Splinting as per ER. (4) S/P coronary artery stent placement: Within last 6 months post non-ST elevation [place].. Continue with aspirin. Hold off on Plavix. Continue with Zetia, beta-cristina. Denies any chest pain. Check echocardiogram. (5) Ischemic cardiomyopathy: Well compensated. Monitor for fluid overload. Last echocardiogram shows an EF 40% with regional wall motion abnormality, grade 1 diastolic dysfunction. (6) Diabetes: Continue with home dose of Lantus. Insulin sliding scale. Carb consistent cardiac diet. (7) Essential hypertension: Goal blood pressure less than 140/90 mmHg. Continue with home dose of lisinopril and beta-cristina for now. Continue to monitor. (8) Dyslipidemia: History of statin intolerance. Check lipid panel. Continue home dose of Zetia. (9) Statin intolerance: Plan Analgesia: Oxycodone IR 5 mg to 4 hours as needed, tramadol 50 every 6 as needed, Celebrex 100 mg twice daily Toradol 15 mg every 8 hour as needed Glycemic control: Lantus, insulin sliding scale low-dose protocol Nutrition:Carb consistent cardiac. CODE STATUS: Full code PUD prophylaxis: Protonix DVT prophylaxis: Lovenox for DVT prophylaxis Plan for the day: Continue with aspirin,ezetemibe. Plan to start Plavix tomorrow. Monitor hemoglobin. Continue with physical therapy. Goal blood pressure less than 140/90 mmHg. Continue with metoprolol. Hold off on lisinopril for now. For pain continue with oxycodone IR 5 mg every 4 hours as needed, add tramadol 50 mg every 6 hourly. Start on Celebrex 200 mg twice daily. Add Toradol 15 mg IV every 6 hours as needed. Monitor renal functions. Stop IV pain medications. Discharge planning. Discharge planning: Discharge planning to most likely SNF as per patient request and physical therapy evaluation. Case management alerted. [facility] care [facility] This documentation was created by [employer] dinkey motor operator software. Every effort was made to ensure accuracy of dinkey motor operator. Any obvious errors or omissions should be clarified with the author of the document. Attestations Medical Necessity Statement*: Requires further hospitalization for management of postoperative care in setting of hip fracture, wrist fracture in a patient with recent PCI for non-ST elevation [place] Time Spent in Patient Care: Greater than 35 minutes Coding Level of Care Code Acute Code for Chg Fwd Diagnoses Fall W19.XXXA Closed intertrochanteric fracture of left hip S72.142A Closed fracture of distal end of left radius S52.502A S/P coronary artery stent placement Z95.5 Ischemic cardiomyopathy I25.5 Diabetes E11.9 Essential hypertension I10 Dyslipidemia E78.5 Statin intolerance Z78.9
[2022-03-31 21:23] LABS: Glucose Point of Care 252 mg/dL (70-110)
[2022-04-01] VITALS (7 sets, daily range): BP systolic 111–137; BP diastolic 64–69; PULSE 80–89; RESP 16–20; TEMP 36.4–36.9; O2SAT 96–98
[2022-04-01 03:36] LABS: Basophils % 0.4 %; Eosinophils # 0.1 10^3/uL (0.0-0.8); Eosinophils % 1.2 %; Hematocrit 29.9 % (42.0-52.0); Lymphocytes # 1.7 10^3/uL (0.8-4.8); Lymphocytes % 17.7 %; Mean Corpuscular HGB Conc 33.4 g/dL (30.0-36.0); Mean Corpuscular Hemoglobin 31.5 pg (28.0-34.0); Mean Corpuscular Volume 94.3 fl (80-94); Mean Platelet Volume 9.8 fL (7.4-10.4); Monocytes # 1.2 10^3/uL (0.2-0.9); Neutrophils # 6.34 10^3/uL (1.8-7.7); Neutrophils % 67.5 %; Nucleated Red Blood Cells % 0 %; Platelet Count 157 10^3/cmm (130-400); Red Blood Count 3.17 10^6/uL (4.1-5.3); Red Cell Distribution Width 11.7 % (12.1-15.1); White Blood Count 9.4 10^3/uL (4.0-10.0)
[2022-04-01] MEDS: oxyCODONE 5 mg IR Tab/Cap PO ×2 (03:45→10:17)
[2022-04-01 03:59] LABS: Alanine Aminotransferase 20 U/L (0-41); Albumin Level 3.3 g/dL (3.5-5.2); Alkaline Phosphatase 56 U/L (40-130); Aspartate Amino Transferase 37 U/L (0-40); Blood Urea Nitrogen 21 mg/dL (8-23); Calcium 8.3 mg/dL (8.5-10.5); Carbon Dioxide 30 mmol/L (22-29); Chloride 96 mmol/L (98-107); Globulin 2.6 g/dL (1.3-4.6); Glomerular Filtration Rate 113.5 mL/min (90-130); Glucose 119 mg/dL (65-115); Osmolality Calculated 278 mOsm/kg (285-295); Sodium 132 mmol/L (136-145); Total Bilirubin 1.2 mg/dL (0.15-1.2); Total Protein 5.9 g/dL (6.6-8.7)
[2022-04-01 06:18] LABS: Glucose Point of Care 164 mg/dL (70-110)
[2022-04-01] MEDS: TRAMadol 50 mg Tablet PO (07:57)
[2022-04-01] MEDS: enoxaparin 40 mg/0.4 mL Syringe SUBCUT (08:52)
[2022-04-01] MEDS: CELEcoxib 100 mg Capsule PO (08:52)
[2022-04-01] MEDS: metoprolol tartrate 50 mg Tablet PO (08:52)
[2022-04-01] MEDS: aspirin 81 mg Chew Tablet PO (08:52)
[2022-04-01] MEDS: gabapentin 300 mg Capsule PO (08:52)
[2022-04-01] MEDS: ezetimibe 10 mg Tablet PO (08:52)
[2022-04-01] MEDS: pantoprazole DR 40 mg Tablet PO (08:53)
[2022-04-01] MEDS: insulin lispro 100 unit/1 mL SUBCUT (08:53)
--- NOTE | 2022-04-01 09:19 | P.TS_ITS ---
Transfer Summary Providers Date of Admission: 03/29/22 16:27 Date of Discharge/Transfer: 04/01/22 Attending Provider at Admission: Varghese Thompson MD Attending Provider at Transfer: Varghese Thompson MD Consults: Orthopedics: Dr. Whitehead Primary Care Provider: Flores Lino NP Transfer Plans: Anticipated date of transfer: 04/01/22 . Receiving Facility: [facility] . Receiving Provider: Dr. Parmar . Diagnoses at Discharge Discharge Diagnosis (1) Fall: Status: Acute (2) Closed intertrochanteric fracture of left hip: Status: Acute (3) Closed fracture of distal end of left radius: Status: Acute (4) S/P coronary artery stent placement: Status: Acute Permanent problem details: mid LAD (5) Ischemic cardiomyopathy: Status: Acute (6) Diabetes: Status: Acute (7) Essential hypertension: Status: Acute (8) Dyslipidemia: Status: Acute (9) Statin intolerance: Status: Acute Reason for Visit Reason for Visit Fall Hospital Course Hospital Course Derik Vitale is a 66 year old male with past medical history of type 2 diabetes mellitus, recent ST elevation [place] with PCI, ischemic cardiomyopathy, 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 Orthopedics was consulted from the ER and plans to take him for ORIF.? Hospitalist service was consulted for admission. Examination patient comfortably in bed without any nausea vomiting, headache.? Complaining of pain in the hip.? Denies any chest pain or difficulty breathing at rest or on exertion.? Maintaining well on room air and is hemodynamically stable currently. Patient was admitted to hospital further evaluation and management. Plavix was withheld while aspirin was continued. Orthopedics was consulted and he underwent ORIF on 03/30. Postoperatively he did well with physical therapy though his hospitalization is complicated by difficult to control pain. Otherwise his hospitalization has remained unremarkable. He has been transferred to [facility] rehab for further rehabitation hip fracture and right wrist fracture. He is to restart his Plavix from 04/01 night . Physical Exam Narrative: General: No acute distress, AO x3 HEENT: PERRLA, pupils bilaterally equal and reactive Chest: Normal vesicular breath sounds, no added sounds, equal good air entry bilaterally CVS: S1-S2 regular, no murmurs, no tachycardia, no gallops, no rubs Abdomen: Soft, nontender, no organomegaly, bowel sounds present Neuro: No focal deficits, no facial deformity, AO x3, power 5/5 in all limbs Extremity: Right wrist in splint Left hip surgically bandaged without any drainage. Urinary Catheter Management: [place]: Cath Placed During This Visit: yes Reason for Continuing Indwelling Catheter: Required Immobilization for Trauma or Surgery or Anesthesia Urinary Catheter Date of Insertion: 03/29/22 Urinary Catheter Time of Insertion: 13:54 TS Data Studies Completed and Pending Pending at discharge Category Date Time Status Complete Blood Count w/Auto AM LABS Lab 04/02/22 04:00 Ordered Comprehensive Metabolic Panel AM LABS Lab 04/02/22 04:00 Ordered Labs from last 24 hours 04/01/22 04/01/22 04/01/22 06:11 03:03 03:03 WBC 9.4 RBC 3.17 L Hgb 10.0 L Hct 29.9 L MCV 94.3 H MCH 31.5 MCHC 33.4 RDW 11.7 L Plt Count 157 MPV 9.8 Neut % (Auto) 67.5 Lymph % (Auto) 17.7 [place] % (Auto) 13.0 Eos % (Auto) 1.2 Baso % (Auto) 0.4 Neut # (Auto) 6.34 Lymph # (Auto) 1.7 [place] # (Auto) 1.2 H Eos # (Auto) 0.1 Baso # (Auto) 0.0 Nucleated RBC % (auto) 0 Nucleated RBCs # 0.0 Sodium 132 L Potassium 4.0 Chloride 96 L Carbon Dioxide 30 H Anion Gap 10.0 BUN 21 Creatinine 0.7 GFR Calculation 113.5 Glucose 119 H POC Glucose 164 H Calculated Osmolality 278 L Calcium 8.3 L Total Bilirubin 1.2 AST 37 ALT 20 Alkaline Phosphatase 56 Total Protein 5.9 L Albumin 3.3 L Globulin 2.6 03/31/22 21:20 WBC RBC Hgb Hct MCV MCH MCHC RDW Plt Count MPV Neut % (Auto) Lymph % (Auto) [place] % (Auto) Eos % (Auto) Baso % (Auto) Neut # (Auto) Lymph # (Auto) [place] # (Auto) Eos # (Auto) Baso # (Auto) Nucleated RBC % (auto) Nucleated RBCs # Sodium Potassium Chloride Carbon Dioxide Anion Gap BUN Creatinine GFR Calculation Glucose POC Glucose 252 H Calculated Osmolality Calcium Total Bilirubin AST ALT Alkaline Phosphatase Total Protein Albumin Globulin Completed Studies During Hospitalization Category Date Time Status CT cervical spin wo con* [id number] Stat Cat Scan 03/29/22 10:[address] chest abdomen pelvis [CT chest abdpel w/*[id number] Cat Scan 03/29/22 10:51 Completed ] Stat CT head wo con* [id number] Stat Cat Scan 03/29/22 10:52 Completed XR elbow RT 2V [id number] Routine Exams 03/30/22 18:49 Completed XR forearm LT 2V [id number] Stat Exams 03/29/22 10:51 Completed XR hip LT 2-3V wo/w pel* [id number] Routine Exams 03/30/22 Completed XR hip LT 2-3V wo/w pel* [id number] Stat Exams 03/29/22 10:51 Completed XR wrist LT 2V [id number] Routine Exams 03/30/22 Completed CV. echo wo/w contrast [id number] Routine Ultrasound 03/29/22 14:48 Completed Laboratory Last Values WBC 9.4 10^3/uL (4.0-10.0) 04/01/22 03:03 RBC 3.17 10^6/uL (4.1-5.3) L 04/01/22 03:03 Hgb 10.0 g/dL (11.7-16.6) L 04/01/22 03:03 Hct 29.9 % (42.0-52.0) L 04/01/22 03:03 MCV 94.3 fl (80-94) H 04/01/22 03:03 MCH 31.5 pg (28.0-34.0) 04/01/22 03:03 MCHC 33.4 g/dL (30.0-36.0) 04/01/22 03:03 RDW 11.7 % (12.1-15.1) L 04/01/22 03:03 Plt Count 157 10^3/cmm (130-400) 04/01/22 03:03 MPV 9.8 fL (7.4-10.4) 04/01/22 03:03 Neut % (Auto) 67.5 % 04/01/22 03:03 Lymph % (Auto) 17.7 % 04/01/22 03:03 [place] % (Auto) 13.0 % 04/01/22 03:03 Eos % (Auto) 1.2 % 04/01/22 03:03 Baso % (Auto) 0.4 % 04/01/22 03:03 Neut # (Auto) 6.34 10^3/uL (1.8-7.7) 04/01/22 03:03 Lymph # (Auto) 1.7 10^3/uL (0.8-4.8) 04/01/22 03:03 [place] # (Auto) 1.2 10^3/uL (0.2-0.9) H 04/01/22 03:03 Eos # (Auto) 0.1 10^3/uL (0.0-0.8) 04/01/22 03:03 Baso # (Auto) 0.0 10^3/uL (0.0-0.1) 04/01/22 03:03 Nucleated RBC % (auto) 0 % 04/01/22 03:03 Nucleated RBCs # 0.0 /100WBC 04/01/22 03:03 Sodium 132 mmol/L (136-145) L 04/01/22 03:03 Potassium 4.0 mmol/L (3.5-5.1) 04/01/22 03:03 Chloride 96 mmol/L (98-107) L 04/01/22 03:03 Carbon Dioxide 30 mmol/L (22-29) H 04/01/22 03:03 Anion Gap 10.0 (5-19) 04/01/22 03:03 BUN 21 mg/dL (8-23) 04/01/22 03:03 Creatinine 0.7 mg/dL (0.7-1.2) 04/01/22 03:03 GFR Calculation 113.5 mL/min (90-130) 04/01/22 03:03 Glucose 119 mg/dL (65-115) H 04/01/22 03:03 POC Glucose 164 mg/dL (70-110) H 04/01/22 06:11 Estimat Average Glucose 189 03/30/22 01:40 Hemoglobin A1c 8.2 % (4.0-6.0) H 03/30/22 01:40 Calculated Osmolality 278 mOsm/kg (285-295) L 04/01/22 03:03 Calcium 8.3 mg/dL (8.5-10.5) L 04/01/22 03:03 Phosphorus 3.8 mg/dL (2.5-4.5) 03/30/22 01:40 Magnesium 1.7 mg/dL (1.7-2.3) 03/30/22 01:40 Iron 109 ug/dL (59-158) 03/29/22 10:52 TIBC 302 mcg/dl 03/29/22 10:52 % Saturation 36.0 % (20-50) 03/29/22 10:52 Unsat Iron Binding 193 ug/dL (112-347) 03/29/22 10:52 Total Bilirubin 1.2 mg/dL (0.15-1.2) 04/01/22 03:03 AST 37 U/L (0-40) 04/01/22 03:03 ALT 20 U/L (0-41) 04/01/22 03:03 Alkaline Phosphatase 56 U/L (40-130) 04/01/22 03:03 Total Protein 5.9 g/dL (6.6-8.7) L 04/01/22 03:03 Albumin 3.3 g/dL (3.5-5.2) L 04/01/22 03:03 Globulin 2.6 g/dL (1.3-4.6) 04/01/22 03:03 Triglycerides 97 mg/dL (0-150) 03/30/22 01:40 Cholesterol 124 mg/dL (0-200) 03/30/22 01:40 LDL Cholesterol, Calc 62 mg/dL (50-129) 03/30/22 01:40 Total VLDL Cholesterol 19 mg/dL (0-30) 03/30/22 01:40 HDL Cholesterol 43 mg/dL (60-100) L 03/30/22 01:40 Cholesterol/HDL Ratio 2.88 mg/dL (1.0-5.00) 03/30/22 01:40 Vitamin B12 452 pg/mL (232-1245) 03/29/22 10:52 Folate > 20.0 ng/mL (4.5-32.2) 03/29/22 10:52 Procalcitonin 0.02 ng/mL (0-0.5) 03/29/22 10:52 TSH 2.40 uIU/mL (0.27-4.20) 03/29/22 10:52 Urine Color Yellow (Yellow) 03/29/22 13:30 Urine Appearance Clear (CLEAR) 03/29/22 13:30 Urine pH 5 (5-7) 03/29/22 13:30 Ur Specific [place] 1.005 (1.005-1.030) 03/29/22 13:30 Urine Protein Trace (Negative) 03/29/22 13:30 Urine Glucose (UA) 1+ (Normal) H 03/29/22 13:30 Urine Ketones 1+ (Negative) H 03/29/22 13:30 Urine Blood Trace (Negative) H 03/29/22 13:30 Urine Nitrate Negative (Negative) 03/29/22 13:30 Urine Bilirubin Neg (Negative) 03/29/22 13:30 Urine Urobilinogen Neg mg/dL (Negative) 03/29/22 13:30 Ur Leukocyte Esterase Trace (Negative) H 03/29/22 13:30 Urine RBC Rare /hpf (0-2) 03/29/22 13:30 Urine WBC Rare /hpf (0-5) 03/29/22 13:30 Ur Squamous Epith Cells None /hpf (0-5) 03/29/22 13:30 Amorphous Sediment Not Reportable 03/29/22 13:30 Urine Bacteria None /hpf (NONE) 03/29/22 13:30 Urine Sperm 2+ /hpf 03/29/22 13:30 Urine Opiates Screen Positive ng/mL (Negative) H 03/29/22 13:30 Ur Barbiturates Screen Negative ng/mL (Negative) 03/29/22 13:30 Ur Phencyclidine Scrn Negative ng/mL (Negative) 03/29/22 13:30 Ur Amphetamines Screen Negative ng/mL (Negative) 03/29/22 13:30 U Benzodiazepines Scrn Negative ng/mL (Negative) 03/29/22 13:30 Urine Cocaine Screen Negative ng/mL (Negative) 03/29/22 13:30 U Marijuana (THC) Screen Negative ng/mL (Negative) 03/29/22 13:30 Radiology Impressions Cervical Spine CT 03/29/22 10:51 IMPRESSION: No evidence of acute fracture or dislocation. Chest/Abdomen/Pelvis CT 03/29/22 10:51 IMPRESSION: 1. No acute traumatic findings in the chest. 2. Nondisplaced intertrochanteric LEFT hip fracture. 3. No free fluid in the abdomen or pelvis. 4. No evidence of solid organ injury in the abdomen or pelvis. 5. Prior cholecystectomy. Forearm X-Ray 03/29/22 10:51 IMPRESSION: 1. Severely comminuted displaced distal radial fracture. Head CT 03/29/22 10:52 IMPRESSION: 1. No evidence of intracranial hemorrhage or mass effect. 2. Mild small vessel changes. Mild parenchymal volume loss. 3. Mild scalp soft tissue edema near the vertex. 4. No acute intracranial findings. Hip/Pelvis X-Ray 03/30/22 00:00 IMPRESSION: 1. Satisfactory ORIF involving an intertrochanteric fracture of the left hip. Wrist X-Ray 03/30/22 00:00 IMPRESSION: 1. Satisfactory reduction and internal fixation involving a comminuted fracture of the distal radius. Elbow X-Ray 03/30/22 18:49 IMPRESSION: 1. Negative for fracture or dislocation. 2. Minimal distal triceps tendon degenerative calcification. Recent Clincial Data Last Vital Signs Temp 97.6 F 04/01/22 07:27 Pulse 86 04/01/22 07:27 Resp 18 04/01/22 07:27 BP 137/66 04/01/22 07:27 Pulse Ox 97 04/01/22 07:27 O2 Del Method 04/01/22 07:27 O2 Flow Rate 2 03/31/22 20:00 Vital Signs Temp Pulse Resp BP Pulse Ox O2 Del Method 04/01/22 07:27 97.6 F 86 18 137/66 97 Nasal Cannula 04/01/22 03:56 98.4 F 80 19 H 118/69 96 Nasal Cannula 04/01/22 03:45 18 96 03/31/22 23:41 97.9 F 85 19 H 112/64 96 Room Air 03/31/22 23:47 18 95 Intake & Output/Weight 03/30/22 03/31/22 04/01/22 04/02/22 06:59 06:59 06:59 06:59 Intake Total 0 / 0 1850 / 1850 1633 / 1633 Output Total 1800 / 1800 4000 / 4000 300 / 300 Balance -1800 / -1800 -2150 / -2150 1333 / 1333 Weight 100.017 kg 100.244 kg Vitals Last Vital Signs Temp 97.6 F 04/01/22 07:27 Pulse 86 04/01/22 07:27 Resp 18 04/01/22 07:27 BP 137/66 04/01/22 07:27 Pulse Ox 97 04/01/22 07:27 O2 Del Method 04/01/22 07:27 O2 Flow Rate 2 03/31/22 20:00 TS Medications Medications Acetaminophen (Acetaminophen 500 Mg Tablet) 1,000 mg PO Q8H PRN PRN Reason: MILD PAIN OR INCREASE TEMP Albuterol/Ipratropium (Ipratropium-Albuterol 3 Ml Neb) 3 ml INHALATION Q6H.RESP PRN PRN Reason: sob Aspirin (Aspirin 81 Mg Chew Tablet) 81 mg PO DAILY REPLACED BY [facility] Last Admin: 04/01/22 08:52 Dose: 81 mg Bisacodyl (Bisacodyl 5 Mg Tablet) 10 mg PO DAILY PRN; Protocol PRN Reason: Constipation (see protocol) Celecoxib (Celecoxib 100 Mg Capsule) 100 mg PO BID REPLACED BY [facility] Last Admin: 04/01/22 08:52 Dose: 100 mg Dextrose (Dextrose 50% Syringe 50 Ml) 25 ml IVP ONCE PRN; Protocol PRN Reason: hypoglycemia protocol Dextrose (Dextrose 50% Syringe 50 Ml) 50 ml IVP PRN PRN; Protocol PRN Reason: hypoglycemia protocol Ezetimibe (Ezetimibe 10 Mg Tablet) 10 mg PO DAILY REPLACED BY [facility] Last Admin: 04/01/22 08:52 Dose: 10 mg Enoxaparin Sodium (Enoxaparin 40 Mg/0.4 Ml Syringe) 40 mg SUBCUT Q24H REPLACED BY [facility] Last Admin: 04/01/22 08:52 Dose: 40 mg Gabapentin (Gabapentin 300 Mg Capsule) 300 mg PO BID REPLACED BY [facility] Last Admin: 04/01/22 08:52 Dose: 300 mg Glucagon (Glucagon 1 Mg/Ml Inj 1 Ml) 1 mg IM ONCE PRN; Protocol PRN Reason: Adult Acute Hypoglycemia Prot. Dextrose (D5w) 500 mls @ 100 mls/hr IV ONCE PRN; Protocol PRN Reason: Adult Acute Hypoglycemia Prot Insulin Glargine (Insulin Glargine 100 Units/1 Ml) 56 unit SUBCUT BID REPLACED BY [facility] Last Admin: 03/31/22 17:14 Dose: 56 unit Insulin Human Lispro (Insulin Lispro 100 Unit/1 Ml) 0 unit SUBCUT WM&BEDTIME REPLACED BY [facility]; Protocol Last Admin: 04/01/22 08:53 Dose: 1 unit Ketorolac Tromethamine (Ketorolac 30 Mg/Ml Inj) 15 mg IVP Q6H PRN PRN Reason: MODERATE PAIN Stop: 04/05/22 09:19 Lactulose (Lactulose Oral Liq 20 Gm/30 Ml Udc) 10 gm PO DAILY PRN; Protocol PRN Reason: Constipation (see protocol) Lanolin (Lanolin Oint 7 Gm) 1 applic TOPICAL PRN PRN PRN Reason: DRYNESS Last Admin: 03/30/22 05:48 Dose: 1 applic Lisinopril (Lisinopril 20 Mg Tablet) 20 mg PO DAILY REPLACED BY [facility] Last Admin: 03/31/22 10:07 Dose: 20 mg Magnesium Hydroxide (Magnesium Hydroxide 30 Ml Udc) 30 ml PO DAILY PRN; Protocol PRN Reason: Constipation (see protocol) Metoprolol Tartrate (Metoprolol Tartrate 50 Mg Tablet) 50 mg PO BID REPLACED BY [facility] Last Admin: 04/01/22 08:52 Dose: 50 mg Ondansetron HCl (Ondansetron 2 Mg/Ml Sdv 2 Ml) 4 mg IVP Q6H PRN PRN Reason: NAUSEA AND VOMITING Last Admin: 03/30/22 06:20 Dose: 4 mg Oxycodone HCl (Oxycodone 5 Mg Ir Tab/Cap) 5 mg PO Q4H PRN PRN Reason: MODERATE TO SEVERE PAIN Last Admin: 04/01/22 03:45 Dose: 5 mg Pantoprazole Sodium (Pantoprazole Dr 40 Mg Tablet) 40 mg PO DAILY REPLACED BY [facility] Last Admin: 04/01/22 08:53 Dose: 40 mg Tramadol HCl (Tramadol 50 Mg Tablet) 50 mg PO Q6H PRN PRN Reason: MODERATE PAIN Last Admin: 04/01/22 07:57 Dose: 50 mg Discontinued Medications Acetaminophen (Acetaminophen 325 Mg Tablet) 650 mg PO Q6H PRN PRN Reason: Mild/Mod Pain Or Temp >/= 101 Hydrocodone Bitart/Acetaminophen (Hydrocodone-Acetaminophen 5-325 Mg Tablet) 1 tab PO Q4H PRN PRN Reason: MODERATE TO SEVERE PAIN Last Admin: 03/30/22 10:03 Dose: 1 tab Calcium Carbonate (Calcium Carbonate 500 Mg Chew Tablet) 1,000 mg PO Q4H PRN PRN Reason: DYSPEPSI Dexamethasone (Dexamethasone 4 Mg/Ml Inj) Confirm Administered Dose 4 mg .ROUTE .STK-MED ONE Stop: 03/30/22 15:51 Fentanyl (Fentanyl 25 Mcg Patch) 1 patch TRANSDERMA Q72H REPLACED BY [facility] Last Admin: 03/30/22 01:52 Dose: 1 patch Fentanyl (Fentanyl 50 Mcg/Ml Inj 2ml) Confirm Administered Dose 100 mcg .ROUTE .STK-MED ONE Stop: 03/30/22 15:01 Gentamicin Sulfate (Gentamicin 40 Mg/Ml Sdv 2 Ml) Confirm Administered Dose 160 mg .ROUTE .STK-MED ONE Stop: 03/30/22 14:03 Gentamicin Sulfate (Gentamicin 40 Mg/Ml Sdv 2 Ml) 160 mg IRRIGATION ONCE ONE Stop: 03/30/22 15:27 Last Admin: 03/30/22 22:31 Dose: Not Given Gentamicin Sulfate (Gentamicin 40 Mg/Ml Sdv 2 Ml) 160 mg IRRIGATION ONCE ONE Stop: 03/30/22 15:32 Last Admin: 03/30/22 15:36 Dose: 160 mg Hydromorphone HCl (Hydromorphone 1 Mg/Ml Inj 1 Ml) 1 mg IVP ONCE ONE Stop: 03/30/22 00:01 Last Admin: 03/30/22 00:19 Dose: 1 mg Hydromorphone HCl (Hydromorphone 1 Mg/Ml Inj 1 Ml) 1 mg IVP Q4H PRN PRN Reason: MODERATE TO SEVERE PAIN Last Admin: 03/30/22 05:24 Dose: 1 mg Hydromorphone HCl (Hydromorphone 1 Mg/Ml Inj 1 Ml) 0.5 mg IVP Q4H PRN PRN Reason: MODERATE TO SEVERE PAIN Last Admin: 03/30/22 10:50 Dose: 0.5 mg Hydromorphone HCl (Hydromorphone 1 Mg/Ml Inj 1 Ml) Confirm Administered Dose 1 mg .ROUTE .STK-MED ONE Stop: 03/30/22 15:59 Acetaminophen (Acetaminophen) 1,000 mg in 100 mls @ 400 mls/hr IV Q8H REPLACED BY [facility] Stop: 03/30/22 22:59 Last Admin: 03/30/22 22:31 Dose: Not Given Acetaminophen (Acetaminophen) 1,000 mg in 100 mls @ 400 mls/hr IV Q8H PRN PRN Reason: PAIN Sodium Chloride (Sodium Chloride 0.9%) 1,000 mls @ 75 mls/hr IV .[id number] AMNA Last Infusion: 03/31/22 10:16 Dose: Infused Cefazolin Sodium 2,000 mg/ (Sodium Chloride) 50 mls @ 100 mls/hr IV [employer]; Protocol Stop: 03/30/22 13:16 Last Infusion: 03/30/22 14:46 Dose: Infused Sodium Chloride (Sodium Chloride 0.9%) Confirm Administered Dose 1,000 mls @ as directed .ROUTE .STK-MED ONE Stop: 03/30/22 13:06 Last Admin: 03/30/22 19:05 Dose: Not Given Cefazolin Sodium 1,000 mg/ (Sodium Chloride) 50 mls @ 100 mls/hr IV Q8H REPLACED BY [facility]; Protocol Stop: 03/31/22 14:29 Last Infusion: 03/31/22 14:01 Dose: Infused Insulin Glargine (Insulin Glargine 100 Units/1 Ml) 56 unit SUBCUT BID REPLACED BY [facility] Last Admin: 03/31/22 10:15 Dose: Not Given Insulin Glargine (Insulin Glargine 100 Units/1 Ml) 56 unit SUBCUT BID REPLACED BY [facility] Iohexol (Iohexol 350 Mg/Ml 500 Ml Btl (Per Ml)) 0 ml IV ONCE ONE Stop: 03/29/22 11:25 Last Admin: 03/29/22 11:24 Dose: 95 ml Ketorolac Tromethamine (Ketorolac 30 Mg/Ml Inj) 15 mg IVP Q8H PRN PRN Reason: MODERATE PAIN Stop: 04/03/22 22:02 Last Admin: 03/30/22 08:52 Dose: 15 mg Lidocaine HCl (Lidocaine 2% Inj 20 Ml) Confirm Administered Dose 20 ml .ROUTE .STK-MED ONE Stop: 03/30/22 15:51 Morphine Sulfate (Morphine 4 Mg/Ml Sdv 1 Ml) 4 mg IVP ONCE ONE Stop: 03/29/22 11:12 Last Admin: 03/29/22 11:27 Dose: 4 mg Morphine Sulfate (Morphine 4 Mg/Ml Sdv 1 Ml) 4 mg IVP ONCE PRN PRN Reason: SEVERE PAIN Last Admin: 03/29/22 11:56 Dose: 4 mg Morphine Sulfate (Morphine 4 Mg/Ml Sdv 1 Ml) 4 mg IVP ONCE ONE Stop: 03/29/22 12:54 Last Admin: 03/29/22 12:59 Dose: 4 mg Morphine Sulfate (Morphine 4 Mg/Ml Sdv 1 Ml) 4 mg IVP Q4H PRN PRN Reason: SEVERE PAIN Last Admin: 03/29/22 21:10 Dose: 4 mg Morphine Sulfate (Morphine 4 Mg/Ml Sdv 1 Ml) 2 mg IVP Q4H PRN PRN Reason: SEVERE PAIN Last Admin: 03/29/22 14:59 Dose: 2 mg Morphine Sulfate (Morphine 4 Mg/Ml Sdv 1 Ml) 4 mg IVP Q1H PRN PRN Reason: PAIN not managed by oral agent Last Admin: 03/31/22 02:49 Dose: 4 mg Ondansetron HCl (Ondansetron 2 Mg/Ml Sdv 2 Ml) 4 mg IVP ONCE ONE Stop: 03/29/22 11:11 Last Admin: 03/29/22 11:27 Dose: 4 mg Ondansetron HCl (Ondansetron 2 Mg/Ml Sdv 2 Ml) Confirm Administered Dose 4 mg .ROUTE .STK-MED ONE Stop: 03/30/22 15:51 Oxycodone HCl (Oxycodone 5 Mg Ir Tab/Cap) 5 - 10 mg PO Q4H PRN PRN Reason: MODERATE TO SEVERE PAIN Last Admin: 03/31/22 06:24 Dose: 5 mg Perflutren Protein Type A Microsphe (Perflutren Protein-A Microsphr 0.22 Mg/Ml Sdv 3 Ml) 0 ml IV ONCE ONE Stop: 03/29/22 15:48 Last Admin: 03/29/22 15:52 Dose: 3 ml Phenylephrine HCl (Phenylephrine 10 Mg/Ml Sdv 1 Ml) Confirm Administered Dose 10 mg .ROUTE .STK-MED ONE Stop: 03/30/22 15:11 Allergies clarithromycin [From Biaxin] Allergy (Verified 01/09/22 09:02) Unknown Home Medications ascorbic acid (vitamin C) 500 mg tablet,extended release (Vitamin C ER) 500 mg PO DAILY 01/02/22 [History Confirmed 03/29/22] biotin-alpha lipoic [id number] 75 mg-300 mcg tablet 1 tab PO DAILY 01/02/22 [History Confirmed 03/29/22] cinnamon bark 500 mg capsule (Cinnamon) 500 mg PO DAILY 01/02/22 [History Confirmed 03/29/22] garlic 200 mg tablet 200 mg PO DAILY 01/02/22 [History Confirmed 03/29/22] lisinopril 20 mg tablet 20 mg PO DAILY 01/02/22 [History Confirmed 03/29/22] magnesium 30 mg tablet 30 mg PO DAILY 01/02/22 [History Confirmed 03/29/22] metformin 500 mg tablet 1,000 mg PO BID 01/02/22 [History Confirmed 03/29/22] omega-3 fatty acids-fish oil 684 mg-1,200 mg capsule,delayed release 1 cap PO DAILY 01/02/22 [History Confirmed 03/29/22] tumeric 100 mg-montse 150 mg-olive 50 mg-oreg 150 mg-caprylate capsule 1 cap PO DAILY 01/02/22 [History Confirmed 03/29/22] zinc acetate 50 mg (zinc) capsule 50 mg PO DAILY 01/02/22 [History Confirmed 03/29/22] nitroglycerin 0.4 mg sublingual tablet 0.4 mg sublingual Q5M PRN Chest Pain #25 tabs 01/03/22 [Rx Confirmed 03/29/22] aspirin 81 mg chewable tablet 81 mg PO DAILY #90 tabs 01/25/22 [Rx Confirmed 03/29/22] clopidogrel 75 mg tablet 75 mg PO DAILY #90 tabs 01/25/22 [Rx Confirmed 03/29/22] metoprolol tartrate 50 mg tablet 50 mg PO BID #180 tabs 01/25/22 [Rx Confirmed 03/29/22] insulin aspart U-100 100 unit/mL (3 mL) subcutaneous pen (Novolog FlexPen U-100 Insulin aspart) See Rx Instructions .Route .COMPLEX 03/17/22 [History Confirmed 03/29/22] semaglutide 3 mg tablet (Rybelsus) 7 mg PO DAILY 03/17/22 [History Confirmed 03/29/22] ezetimibe 10 mg tablet (Zetia) 10 mg PO DAILY #90 tabs 03/24/22 [Rx Confirmed 03/29/22] insulin glargine 100 unit/mL (3 mL) subcutaneous pen (Lantus Solostar U-100 Insulin) 56 unit (0.56 mL) SUBCUT BID #15 mL 03/24/22 [Rx Confirmed 03/29/22] benzonatate 100 mg capsule 200 mg PO BEDTIME PRN Cough 03/29/22 [History Confirmed 03/29/22] oxycodone 5 mg tablet 5 - 10 mg PO Q4H PRN Moderate To Severe Pain 7 days #40 tabs 03/31/22 [Rx] Discharge Plan Discharge Patient Disposition: Xfer Inpatient Rehab Fac Condition: Stable Prescriptions: New oxycodone 5 mg Tablet 5 - 10 mg PO Q4H PRN (Reason: Moderate To Severe Pain) 7 Days Qty: 40 0RF enoxaparin 40 mg/0.4 mL Syringe 40 mg SUBCUT Q24H 10 Days Qty: 4 0RF acetaminophen 500 mg Tablet 1,000 mg PO Q8H PRN (Reason: Mild Pain Or Increase Temp) 14 Days Qty: 84 0RF gabapentin 300 mg Capsule 300 mg PO BID 7 Days Qty: 14 0RF Continued aspirin 81 mg tablet,chewable 81 mg PO DAILY Qty: 90 3RF clopidogrel 75 mg tablet 75 mg PO DAILY Qty: 90 3RF metoprolol tartrate 50 mg tablet 50 mg PO BID Qty: 180 3RF ezetimibe [Zetia] 10 mg tablet 10 mg PO DAILY Qty: 90 0RF insulin glargine [Lantus Solostar U-100 Insulin] 100 unit/mL (3 mL) insulin pen 56 unit SUBCUT BID Qty: 15 0RF metformin 500 mg tablet 1,000 mg PO BID zinc acetate 50 mg (zinc) Capsule 50 mg PO DAILY lisinopril 20 mg tablet 20 mg PO DAILY magnesium 30 mg Tablet 30 mg PO DAILY ascorbic acid (vitamin C) [Vitamin C] 500 mg Tablet Extended Release 500 mg PO DAILY biotin-alpha lipoic [id number] 75-300 mg-mcg Tablet 1 tab PO DAILY cinnamon bark [Cinnamon] 500 mg Capsule 500 mg PO DAILY omega-3 fatty acids-fish oil 684-1,200 mg Capsule,Delayed Release(Dr/Ec) 1 cap PO DAILY garlic 200 mg Tablet 200 mg PO DAILY zlojveb-lvfd-ymjup-oreg-capryl 100 mg-150 mg- 50 mg-150 mg Capsule 1 cap PO DAILY nitroglycerin 0.4 mg Tablet, Sublingual 0.4 mg sublingual Q5M PRN (Reason: Chest Pain) Qty: 25 1RF Novolog FlexPen U-100 Insulin 100 unit/mL (3 mL) insulin pen See Rx Instructions .ROUTE .COMPLEX Rx Instructions: per sliding scale Rybelsus 3 mg tablet 7 mg PO DAILY benzonatate 100 mg capsule 200 mg PO BEDTIME PRN (Reason: Cough) Discharge Orders: Discharge Order (Routine); Ordered 04/01/22 Ordered By: Varghese Thompson Other Ambulatory Orders: DME: [facility] (Order) Location: None Selected Ordered By: Keith Dickerson DME: Walker (Order) Location: None Selected Ordered By: Keith Dickerson Referrals: Flores Lino NP [Primary Care Provider] - Discharge Diet: Advance as tolerated Patient Instructions: Opioid Safety Activity Restrictions/Additional Instructions: Replace dressing left hip as needed for drainage Okay to shower or sponge bathe and get hip incision wet as long as incision free of drainage Keep dressing left wrist dry Take oxycodone for severe pain Take Tylenol and Neurontin as scheduled. Transfer Attestations Time Spent in Transfer Care: greater than 30 min Specific Discharge Activities: educating patient, educating and/or supporting family/caregiver, discussing with pcp/other providers, discussing with pillowcase sewer/social workers/dc planners and documenting/other paperwork Status at Transfer: Cognitive status at transfer: cognitively intact ; Behavioral status at transfer: cooperative ; Functional status at transfer: uses cane/walker ; Overall status at transfer: patient is progressing back to baseline Quality Metrics Clinical Quality Measures [ No reported AMI, CVA or VTE this stay] Coding Level of Care Code Acute Code for Chg Fwd Diagnoses Fall W19.XXXA Closed intertrochanteric fracture of left hip S72.142A Closed fracture of distal end of left radius S52.502A S/P coronary artery stent placement Z95.5 Ischemic cardiomyopathy I25.5 Diabetes E11.9 Essential hypertension I10 Dyslipidemia E78.5 Statin intolerance Z78.9
[2022-04-01] MEDS: insulin glargine 100 units/1 mL 56 UNIT SUBCUT (09:46)
[2022-04-01 11:27] LABS: Glucose Point of Care 275 mg/dL (70-110)
--- NOTE | 2022-04-01 12:08 | PC.OT ---
Attempted to see patient for OT; however, patient is waiting for ambulance for transfer to [facility].
== END 2022-04-01 12:41 | DRG 510 ==
LOC: ER 16:14 → MEDSURG 16:33
PROVIDERS: Orthopaedic Surgery; Admitting Provider Student in an Organized Health Care Education/Training Program; Emergency Provider Family Medicine; PCP Nurse Practitioner; Visit Provider Student in an Organized Health Care Education/Training Program
PROC: 0PSJ04Z Reposition Left Radius with Internal Fixation Device, Open Approach (ICD-10-PCS; principal; 2022-03-30 14:00)
PROC: 0PSJ04Z Reposition Left Radius with Internal Fixation Device, Open Approach (ICD-10-PCS; CPT 27245; 2022-03-30 14:00)
DX: S52.502A Unspecified fracture of the lower end of left radius, initial encounter for closed fracture (principal); S72.145A Nondisplaced intertrochanteric fracture of left femur, initial encounter for closed fracture; W17.89XA Other fall from one level to another, initial encounter; Y99.0 Civilian activity done for income or pay; I25.10 Atherosclerotic heart disease of native coronary artery without angina pectoris; Z95.5 Presence of coronary angioplasty implant and graft; I25.5 Ischemic cardiomyopathy; E11.9 Type 2 diabetes mellitus without complications; I10 Essential (primary) hypertension; E78.5 Hyperlipidemia, unspecified; I25.2 Old myocardial infarction; Z79.84 Long term (current) use of oral hypoglycemic drugs; Z79.82 Long term (current) use of aspirin; Z79.02 Long term (current) use of antithrombotics/antiplatelets; Z79.4 Long term (current) use of insulin; Z79.891 Long term (current) use of opiate analgesic; Z87.891 Personal history of nicotine dependence; Z86.16 Personal history of COVID-19
CPT/HCPCS: 36415; 36416; 51702; 70450; 71260; 72125; 73070; 73090; 73100; 73502; 74177; 76000; 80053; 80061; 80306; 81001; 82607; 82746; 82962; 83036; 83540; 83550; 83735; 84100; 84145; 84443; 85014; 85018; 85025; 93005; 94664; 96372; 96374; 96375; 97110; 97116; 97161; 97166; 97530; 99285; C1713 ×2; C1776; C8929; J0690; J1100; J1170; J1580; J1650; J1815; J1885; J2270; J2370; J2405; J3010; J7030; Q9956; Q9967

== ENCOUNTER → 2022-05-10 10:42 | Outpatient (BNVA) | payer OTHER, SELFPAY | PROVIDERS: PCP Nurse Practitioner; Visit Provider Orthopaedic Surgery | DX: S72.142D Displaced intertrochanteric fracture of left femur, subsequent encounter for closed fracture with routine healing (principal); S52.502D Unspecified fracture of the lower end of left radius, subsequent encounter for closed fracture with routine healing; X58.XXXD Exposure to other specified factors, subsequent encounter; G56.02 Carpal tunnel syndrome, left upper limb | CPT/HCPCS: 73110; 73502 ==

== ENCOUNTER → 2022-05-31 13:16 | Outpatient (BNVA) | payer OTHER, SELFPAY | PROVIDERS: PCP Nurse Practitioner; Visit Provider Orthopaedic Surgery | DX: Z98.890 Other specified postprocedural states (principal); S52.502A Unspecified fracture of the lower end of left radius, initial encounter for closed fracture; S72.142A Displaced intertrochanteric fracture of left femur, initial encounter for closed fracture; X58.XXXA Exposure to other specified factors, initial encounter | CPT/HCPCS: 73110; 73502 ==

== ENCOUNTER 2022-06-22 05:44 | Day surgery (SDC) | payer OTHER, SELFPAY ==
[2022-06-21 11:11] VITALS: BMI 29.5
[2022-06-22] VITALS (7 sets, daily range): BP systolic 115–146; BP diastolic 67–85; PULSE 63–75; RESP 16–18; TEMP 36.3–36.7; O2SAT 95–99
[2022-06-22] MEDS: sodium chloride 0.9% 1,000 ML 30 ML IV (06:24)
[2022-06-22 06:52] LABS: Anion Gap 13.9 (5-19); Blood Urea Nitrogen 18 mg/dL (8-23); Calcium 9.1 mg/dL (8.5-10.5); Carbon Dioxide 26 mmol/L (22-29); Chloride 99 mmol/L (98-107); Glomerular Filtration Rate 113.5 mL/min (90-130); Glucose 160 mg/dL (65-115); Osmolality Calculated 285 mOsm/kg (285-295); Potassium 3.9 mmol/L (3.5-5.1); Sodium 135 mmol/L (136-145)
--- NOTE | 2022-06-22 07:03 | W.PM.OPSUD ---
Surgery/Procedure H&P Update DATE OF PROCEDURE: June 22, 2022 DATE H&P PERFORMED: 05/31/22 H&P UPDATE INFORMATION: I have reviewed H&P completed within last 30 days PREOP DIAGNOSIS: Retained hardware right wrist PLANNED PROCEDURE: Operation Date: 06/22/22 07:00 Proposed Procedures p hardware removal left wrist/ 00898, S52.502A(Left) - Keith Dickerson MD
[2022-06-22] MEDS: ceFAZolin 2,000 MG in sodium chloride 0.9% (plus) 50 ML 100 MG IV (07:04)
--- NOTE | 2022-06-22 07:45 | XR_ITS ---
WS: [id number] C-ARM RADIOGRAPHS LEFT WRIST; 3 IMAGES HISTORY: OR PICS COMPARISON: 05/31/2022 Intraoperative imaging during hardware removal LEFT wrist. XR/XR wrist LT 2V [id number] IMPRESSION: Intraoperative imaging during hardware removal.
--- NOTE | 2022-06-22 07:57 | P.OP_ITS ---
Operative Report Date of procedure: June 22, 2022 Pre-op diagnosis: Preop Diagnosis Retained hardware right wrist Post-op diagnosis: same Pathology: none sent Surgeon: Keith Dickerson Anesthesia: General Estimated blood loss (mL): 2 Tourniquet time (min): 29 Findings: The patient had the previously describedc Danielson wrist fracture plate. No purulence or necrotic tissue was identified. Condition: stable Disposition: PACU Brief History: The patient is a 66-year-old male who sustained a comminuted left distal radius fracture with a fall on 03/29/2022. He was taken to the operating room the following day for a spanning plate across the distal radius. The fracture appeared to be consolidated on radiographs and elective plate removal was chosen to allow range of motion Procedure: The patient was taken to the operating room and given a general anesthesia. He was given 2 g of Ancef. A tourniquet was applied to the left arm. The arm was prepped and draped in the usual fashion. A timeout was performed. A tourniquet was inflated to 350 mmHg. Initially the distal scar over the index metacarpal was opened up with a scalpel blade dissection was carried down to the distal aspect of the plate. All 4 screws were removed with minimal difficulty. Attention was then focused on the proximal extent of the plate. The scar over the distal radius was divided and dissection carried down bluntly to the proximal extent of the plate. Those 4 screws were removed without difficulty. A Wellborn was then passed underneath the plate the plate, the plate manipulated and removed through the proximal incision. Prominent bone and fibrous tissue around the screw holes were removed with a rongeur. Deep tissues were closed with 3-0 Vicryl. The skin was closed with interrupted 4-0 Prolene. The tourniquet was deflated. Xeroflo gauze 4 x 4's Webril and Martir wrap were placed over the wrist and forearm. The patient was extubated taken recovery in stable condition.
[2022-06-22] MEDS: HYDROcodone-acetaminophen 5-325 mg Tablet 1 TAB PO (08:24)
--- NOTE | 2022-06-22 08:26 | SUR.PHASEI ---
0815 Pt was taken to OPS earlier than protocol due to becoming upset with a baby crying in PACU. Pt was teary eyed because baby was crying and stated I hope that little fellow is going to be ok. I am just worried about him. This nurse tried to explain to patient that it is normal for little ones to cry after surgery. He continued to be upset and stated it makes him sad to hear little ones crying. Pt is awake, alert, and oriented times three. Denies pain.
--- NOTE | 2022-06-22 08:37 | ANES.PREANE2 ---
Pre-Anesthetic Assessment Height/Weight: Height 1.78 m Weight 93.44 kg Temp Pulse Resp BP Pulse Ox O2 Del Method O2 Flow Rate 97.8 F 69 16 115/75 95 Room Air 6 06/22/22 08:15 06/22/22 08:15 06/22/22 08:15 06/22/22 08:15 06/22/22 08:15 06/22/22 08:15 06/22/22 08:00 Preop Diagnosis: Retained hardware right wrist Operation Date: 06/22/22 07:00 Proposed Procedures p hardware removal left wrist/ , S52.502A(Left) - Keith Dickerson MD Familial anesthetic complications: none Was Beta Pretty taken within 24 hours: Yes Was Clonidine taken within 24 hours: N/A Last intake: Intake Last Liquid Date 06/21/22 Last Liquid Time 21:00 Last Solid Date 06/21/22 Last Solid Time 21:00 Social No alcohol and No tobacco Exam alert, oriented x 3, clear to auscultation bilaterally and regular rate & rhythm Airway Submandibular: within normal limits Cervical ROM: within normal limits Mallampati: Class II CV/HEM Coronary Artery Disease (stent), Hypertension, Myocardial Infarction and Peripheral Vascular Disease Metabolic Diabetes Mellitus and Hyperlipidemia Anesthetic Plan ASA status: 3 Anesthesia: General Medications/Allergies Home Medications Medication Instructions Recorded Confirmed Last Taken Type ascorbic acid (vitamin C) 500 mg 500 mg PO DAILY 01/02/22 06/21/22 06/21/22 History tablet,extended release (Vitamin C ER) biotin-alpha lipoic 1 tab PO DAILY 01/02/22 06/21/22 06/21/22 History [id number] 75 mg-300 mcg tablet cinnamon bark 500 mg capsule 500 mg PO DAILY 01/02/22 06/21/22 06/21/22 History (Cinnamon) garlic 200 mg tablet 200 mg PO DAILY 01/02/22 06/21/22 06/21/22 History magnesium 30 mg tablet 30 mg PO DAILY 01/02/22 06/21/22 06/21/22 History metformin 500 mg tablet 1,000 mg PO BID 01/02/22 06/21/22 06/21/22 History omega-3 fatty acids-fish oil 684 1 cap PO DAILY 01/02/22 06/21/22 06/21/22 History mg-1,200 mg capsule,delayed release tumeric 100 mg-montse 150 mg-olive 1 cap PO DAILY 01/02/22 06/21/22 06/21/22 History 50 mg-oreg 150 mg-caprylate capsule zinc acetate 50 mg (zinc) capsule 50 mg PO DAILY 01/02/22 06/21/22 06/21/22 History nitroglycerin 0.4 mg sublingual 0.4 mg sublingual Q5M PRN Chest 01/03/22 06/21/22 Unknown Rx tablet Pain #25 tabs aspirin 81 mg chewable tablet 81 mg PO DAILY #90 tabs 01/25/22 06/21/22 06/21/22 Rx clopidogrel 75 mg tablet 75 mg PO DAILY #90 tabs 01/25/22 06/21/22 06/21/22 Rx metoprolol tartrate 50 mg tablet 50 mg PO BID #180 tabs 01/25/22 06/21/22 06/21/22 Rx insulin aspart U-100 100 unit/mL See Rx Instructions .Route .COMPLEX 03/17/22 06/21/22 06/21/22 History (3 mL) subcutaneous pen (Novolog FlexPen U-100 Insulin aspart) semaglutide 3 mg tablet (Rybelsus) 7 mg PO DAILY 03/17/22 06/21/22 06/21/22 History ezetimibe 10 mg tablet (Zetia) 10 mg PO DAILY #90 tabs 03/24/22 06/21/22 06/21/22 Rx insulin glargine 100 unit/mL (3 56 unit (0.56 mL) SUBCUT BID #15 mL 03/24/22 06/22/22 06/21/22 Rx mL) subcutaneous pen (Lantus Solostar U-100 Insulin) benzonatate 100 mg capsule 200 mg PO BEDTIME PRN Cough 03/29/22 06/21/22 04/03/22 History hydrocodone 5 mg-acetaminophen 325 1 tab PO Q4H #30 tabs 06/22/22 Unknown Rx mg tablet Allergies Allergy/AdvReac Type Severity Reaction Status Date / Time clarithromycin [From Biaxin] Allergy Unknown Verified 06/22/22 06:05 Current Medications Generic Name Dose Route Start Last Admin Trade Name Freq PRN Reason Stop Dose Admin Sodium Chloride 1,000 mls @ 30 mls/hr 06/22/22 06:00 06/22/22 06:24 Sodium Chloride 0.9% IV 06/23/22 05:59 30 mls/hr .Q24H AMNA Administration PFSH Anesthesia Medical History Acute non-ST segment elevation myocardial infarction (NSTEMI) following previous myocardial infarction CAD (coronary artery disease) Chest pressure Diabetes Dyslipidemia Essential hypertension Fall History of COVID-19 Ischemic cardiomyopathy Statin intolerance Surgical History History of cholecystectomy S/P coronary artery stent placement mid LAD Social History Smoking and tobacco status: former smoker (1994) Data Anesthesia 06/22/22 06:18 BMP 06/22/22 06:18 Sodium 135 L Potassium 3.9 Chloride 99 Carbon Dioxide 26 BUN 18 Creatinine 0.7 Glucose 160 H Calcium 9.1 Cardiac Studies: Echocardiogram 03/29/22
--- NOTE | 2022-06-22 14:28 | ANE.PACU2 ---
Inpatient post-anesthesia follow up: Airway intact: Yes Vital signs: Temperature 97.8 F Pulse Rate 75 Respiratory Rate 16 Blood Pressure 116/78 Pulse Oximetry 95 Oxygen Delivery Me thod Room Air Oxygen Flow Rate 6 Fraction of Inspir ed Oxygen Hydration adequate: Yes Nausea and vomiting: No Pain level: 2 Mental status: Baseline
[2022-06-26 05:16] LABS: Glucose Point of Care 146 mg/dL (70-110)
== END 2022-06-22 09:10 | disposition home or self-care (01) ==
PROVIDERS: Anesthesiology; PCP Nurse Practitioner; Visit Provider Orthopaedic Surgery
PROC: (CPT 20680; principal; 2022-06-22 07:00)
DX: S52.502D Unspecified fracture of the lower end of left radius, subsequent encounter for closed fracture with routine healing (principal); E11.51 Type 2 diabetes mellitus with diabetic peripheral angiopathy without gangrene; I10 Essential (primary) hypertension; I25.10 Atherosclerotic heart disease of native coronary artery without angina pectoris; I25.5 Ischemic cardiomyopathy; I25.2 Old myocardial infarction; Z79.4 Long term (current) use of insulin; Z79.84 Long term (current) use of oral hypoglycemic drugs; Z79.899 Other long term (current) drug therapy; Z87.891 Personal history of nicotine dependence; Z86.16 Personal history of COVID-19; Z95.1 Presence of aortocoronary bypass graft; W19.XXXD Unspecified fall, subsequent encounter
CPT/HCPCS: 20680; 36415; 36416; 73100; 76000; 80048; 82962; J0690; J1100; J1580; J2250; J2370; J2405; J2704; J3010; J7030

== ENCOUNTER → 2022-07-05 09:17 | Outpatient (BNVA) | payer OTHER, SELFPAY | PROVIDERS: PCP Nurse Practitioner; Visit Provider Orthopaedic Surgery | DX: Z98.890 Other specified postprocedural states (principal); Z87.81 Personal history of (healed) traumatic fracture; Z79.84 Long term (current) use of oral hypoglycemic drugs; Z79.4 Long term (current) use of insulin | CPT/HCPCS: 73110; 73502 ==

== ENCOUNTER → 2022-07-10 09:40 | Outpatient (BNVA) | payer OTHER, SELFPAY | PROVIDERS: PCP Nurse Practitioner; Visit Provider Nurse Practitioner Family | DX: I25.10 Atherosclerotic heart disease of native coronary artery without angina pectoris (principal); E78.5 Hyperlipidemia, unspecified; Z87.891 Personal history of nicotine dependence; I11.0 Hypertensive heart disease with heart failure; I50.20 Unspecified systolic (congestive) heart failure | CPT/HCPCS: 99214 ==

== ENCOUNTER → 2022-08-02 09:55 | Outpatient (BNVA) | payer OTHER, SELFPAY | PROVIDERS: PCP Nurse Practitioner; Visit Provider Orthopaedic Surgery | DX: S72.142D Displaced intertrochanteric fracture of left femur, subsequent encounter for closed fracture with routine healing (principal); X58.XXXD Exposure to other specified factors, subsequent encounter; Z98.890 Other specified postprocedural states; Z87.81 Personal history of (healed) traumatic fracture | CPT/HCPCS: 73110; 73502 ==

== ENCOUNTER → 2022-09-13 10:08 | Outpatient (BNVA) | payer OTHER, SELFPAY | PROVIDERS: PCP Nurse Practitioner; Visit Provider Nurse Practitioner Family | DX: Z98.890 Other specified postprocedural states (principal); Z87.81 Personal history of (healed) traumatic fracture; M25.532 Pain in left wrist | CPT/HCPCS: 73110 ==

== ENCOUNTER → 2022-10-24 10:25 | Outpatient (BNVA) | payer OTHER, SELFPAY | PROVIDERS: PCP Nurse Practitioner; Visit Provider Nurse Practitioner Family | DX: M25.532 Pain in left wrist; Z98.890 Other specified postprocedural states; Z87.81 Personal history of (healed) traumatic fracture | CPT/HCPCS: 73110 ==

== ENCOUNTER → 2022-11-07 10:38 | Outpatient (BNVA) | payer OTHER, SELFPAY | PROVIDERS: PCP Nurse Practitioner; Visit Provider Nurse Practitioner Family | DX: M25.532 Pain in left wrist; Z98.890 Other specified postprocedural states; Z87.81 Personal history of (healed) traumatic fracture | CPT/HCPCS: 73110 ==

== ENCOUNTER → 2024-10-08 16:20 | Outpatient (BNVA) | payer MEDICARE, OTHER, SELFPAY | PROVIDERS: PCP Nurse Practitioner; Visit Provider Internal Medicine Cardiovascular Disease | DX: Z01.818 Encounter for other preprocedural examination (principal); I10 Essential (primary) hypertension; E78.5 Hyperlipidemia, unspecified; Z79.82 Long term (current) use of aspirin; Z95.5 Presence of coronary angioplasty implant and graft; Z87.891 Personal history of nicotine dependence; I25.2 Old myocardial infarction | CPT/HCPCS: 99214 ==